=== PATIENT | female | born 1945 | race Caucasian/White ===

== ENCOUNTER 2018-03-06 06:38 | Day surgery (SDC) | payer MEDICARE, BC ==
[~2018-03-06 06:38] MED LIST: CEFAZOLIN 1 GM/D5W RTU 1 GM/50 ML RTUPB IV PRN; DEXTROSE 5%-1/2 NORMAL SALINE 1,000 ML IV PRN; DIAZEPAM 5 MG TABLET PO PRN; OXYCODONE-ACETAMINOPHEN 5-325 MG TABLET PO PRN
--- NOTE | 2018-03-06 07:32 | RADIOLOGY REPORT (SQ) ---
EXAM DESCRIPTION: Single view of the chest CLINICAL HISTORY: PREOP for port placement. COMPARISON: None. FINDINGS: Single frontal view of the chest. Atherosclerotic calcification of the aortic arch. Heart is not enlarged. Blunting of the right costophrenic angle may represent small pleural effusion or pleural scarring. No pneumothorax. No displaced rib fractures identified. Upper abdominal soft tissues are unremarkable. IMPRESSION: 1. Blunting of the right costophrenic angle may represent small right pleural effusion or pleural scarring.
[2018-03-06 07:43] LABS: HEMATOCRIT 32.9 % (36.0-47.0); HEMOGLOBIN 11.3 g/dL (12.0-15.5); MEAN CORPUSCULAR HEMOGLOBIN 34.1 pg (27.0-33.4); MEAN CORPUSCULAR HGB CONC 34.5 g/dL (32.0-36.0); MEAN CORPUSCULAR VOLUME 99 fl (80-97); PLATELET COUNT 263 10^3/uL (150-450); RED BLOOD COUNT 3.33 10^6/uL (3.72-5.28); RED CELL DISTRIBUTION WIDTH 13.1 % (11.5-14.0); WHITE BLOOD COUNT 4.8 10^3/uL (4.0-10.5)
[2018-03-06 07:51] LABS: ANION GAP 10 (5-19); BLOOD UREA NITROGEN 17 mg/dL (7-20); CALCIUM 9.5 mg/dL (8.4-10.2); CARBON DIOXIDE 24 mmol/L (22-30); CHLORIDE 111 mmol/L (98-107); GLUCOSE 93 mg/dL (75-110); POTASSIUM 4.5 mmol/L (3.6-5.0)
[2018-03-06] MEDS ORDERED: BACITRACIN INJ 50,000 UNIT VIAL ONE (08:23)
[2018-03-06] MEDS ORDERED: LIDOCAINE 0.5% INJ-PF (5 MG/ML) 50 ML SDV ONE (08:23)
[2018-03-06] MEDS ORDERED: MIDAZOLAM 2 MG/2 ML INJ ONE (08:29)
[2018-03-06] MEDS ORDERED: FENTANYL CITRATE INJ/PF 100 MCG/2 ML AMPUL ONE (08:29)
--- NOTE | 2018-03-06 09:49 | Discharge Summary ---
Discharge Summary (SDC) - Discharge Final Diagnosis: Lung cancer Date of Surgery: 03/06/18 Discharge Date: 03/06/18 Condition: Good Treatment or Instructions: Discharge home [after recovery per ASU criteria]. Diet ,as tolerated, when fully awake advance as tolerated. Activities within moderation encouraged. Follow up in my office by appointment in about [1 week]. Call for appointment. Leave wounds [covered], [keep clean and dry, until office visit in 1 week]. Hold of on school/work [until evaluation in office]. Meds per med rec. Percocet prescription. May shower [in 48 hrs], [try to keep operated area as dry as possible]. Prescriptions: Oxycodone HCl/Acetaminophen [Percocet 5-325 mg Tablet] 1 tab PO ASDIR PRN #15 tab PRN Reason: Referrals: CALDERON DAVID MD [Primary Care Provider] - Discharge Diet: As Tolerated Respiratory Treatments at Home: Deep Breathing/Coughing Discharge Activity: Activity As Tolerated Report the Following to Your Physician Immediately: Shortness of Breath, Unusual Bleeding
--- NOTE | 2018-03-06 09:52 | Operative Report ---
Operative Report DATE OF SURGERY: 03/06/18 PREOPERATIVE DIAGNOSIS: Lung cancer POSTOPERATIVE DIAGNOSIS: Lung cancer OPERATION: 1. Ultrasound evaluation and real-time access into the left internal jugular vein. 2. Port-A-Cath insertion via real-time access and left internal jugular vein. 3. Angiogram and interpretation. SURGEON: BLANKA DAWSON HVAC OPERATIONS TECHNICIAN: None. ANESTHESIA: Moderate Sedation TISSUE REMOVED OR ALTERED: Not applicable. COMPLICATIONS: None. ESTIMATED BLOOD LOSS: 5 mL. INTRAOPERATIVE FINDINGS: Satisfactory left internal jugular vein, situated almost between the heads of the sternocleidomastoid. Satisfactory access, satisfactory position with the tip down in the right atrium. Easy egress of blood and ingress of heparinized solution. Smooth flow of contrast through the right atrium PROCEDURE: After obtaining informed consent, the patient was taken to the [employer] and positioned supine. The left neck and chest were prepared with chlorhexidine and draped out with sterile linen. After the " universal timeout", in which it was verified that the patient continued to receive antibiotic, the procedure commenced. A steriley sheathed ultrasound probe was used to evaluate the [ right] internal jugular vein. Local anesthesia was infiltrated adjacent to the probe. Access into the left internal jugular vein was obtained using a micropuncture needle, followed by micropuncture wire and then a micropuncture catheter. This was followed by introduction of a 0.035 guidewire the tip of which was placed down into the inferior vena cava . The port sites was marked , locally anesthetized and incision made. Dissection now proceeded to the deep subcutaneous subcutaneous tissues so that a pocket for the port was made. Meticulous hemostasis was secured and the catheter was tunneled between the 2 incisions. Proximally, the catheter was now positioned using a peel-away sheath. Distally the catheter was tailored to an appropriate length and then mated to the port using the contained fixating device. The port was now placed in the pocket and the catheter optimally positioned. The port was accessed with a Hernandes needle and an angiogram done under digital subtraction. The findings as dictated. With adequate and satisfactory positioning, both lumens of the chamber were irrigated with heparinized solution. The wounds were now closed using interrupted 3-0 PDS to the subcutaneous tissues and a continuous subcuticular suture of 4-0 Monocryl to the skin. These are reinforced with Steri-Strips over benzoin and then dressings applied. Time: 0.7 minute. Dose: 5.71 m Gy Contrast: 5 mls. Isovue 300. Copies of the dictated operative report for Dr. Blanka Hartman MD.
--- NOTE | 2018-03-06 13:20 | RADIOLOGY REPORT (SQ) ---
EXAM DESCRIPTION: PORTACATH INSERTION COMPLETED DATE/TIME: 03/06/2018 9:44 am REASON FOR STUDY: C34.91 RT LUNG CA C34.91 MALIGNANT NEOPLASM OF UNSP PART OF RIGHT BRONCHUS OR COMPARISON: None. FLUOROSCOPY TIME: 0.7 minutes. 11 images saved to PACS. TECHNIQUE: Intra-operative images acquired during surgical procedure to evaluate progress. NUMBER OF IMAGES: 11 images. LIMITATIONS: None. FINDINGS: Images of the chest acquired during catheter placement. IMPRESSION: IMAGE(S) OBTAINED DURING PROCEDURE. COMMENT: Quality ID [id number]: Final reports for procedures using fluoroscopy that document radiation exp osure indices, or exposure time and number of fluorographic images (if radiation exposure indices are not available) Please consult full operative report of the attending physician for description of the procedure. TECHNICAL DOCUMENTATION: JOB ID: [id number] [employer]- All Rights Reserved Reading location - IP/workstation name: [email or web address]
[2018-03-06 13:26] VITALS: BP 123/56
== END 2018-03-06 11:00 | disposition home or self-care (01) ==
LOC: CCL 06:38
PROVIDERS: ATTEND Surgery
DX: C34.91 Malignant neoplasm of unspecified part of right bronchus or lung (principal); I10 Essential (primary) hypertension; M19.90 Unspecified osteoarthritis, unspecified site; Z79.899 Other long term (current) drug therapy; Z79.82 Long term (current) use of aspirin; Z87.891 Personal history of nicotine dependence; Z79.1 Long term (current) use of non-steroidal anti-inflammatories (NSAID)
CPT/HCPCS: 36415; 85027; 80048; 36561; 76937; 77001; 71045; C1752; C1788; Q9967; C1769; J2250; J3490 ×2; J0690; A9270 ×2; J3010; J1644

== ENCOUNTER → 2018-05-10 | Outpatient (CLI) | payer MEDICARE, BC ==
--- NOTE | 2018-05-10 17:11 | XCELERA REPORT ---
[address] [address] Upper Extremity Venous Evaluation Name: SENAIT LEONARD Age: 72 yrs Gender: Female : 1945 Patient Status: Preadmit Patient Location: Study Date: 05/10/2018 01:12 PM Procedure: Unilateral duplex scan of the left upper extremity veins was performed, including responses to compression and other maneuvers. Reason For Study: LT SHOULDER PAIN Ordering Physician: MIKE^BLANKA^^^MD Performed By: Geraldine Kim Left Sided Venous Evaluation Normal vessels filling, wall to wall, Normal compression, augmentation of flow and Colour flow imaging. From the Subclavian to the forearm veins. Interpretation Summary Normal compression, patency, spontaneous and phasic flow of the left upper extremity veins. : MIKE^BLANKA^^^MD > Blanka Hartman
== END ==
LOC: SP 13:53
PROVIDERS: ATTEND Surgery
DX: M25.512 Pain in left shoulder (principal)
CPT/HCPCS: 93971

== ENCOUNTER → 2018-06-27 | Outpatient (CLI) | payer MEDICARE, BC ==
--- NOTE | 2018-06-28 08:32 | RADIOLOGY REPORT (SQ) ---
EXAM DESCRIPTION: PET CT SKULL/THIGH COMPLETED DATE/TIME: 06/27/2018 8:41 pm REASON FOR STUDY: C34.11 MALIGNANT NEOPLASM OF UPPER LOBE, RIGHT BRONCHUS OR LUNG C34.11 MALIGNANT NEOPLASM OF UPPER LOBE, RIGHT BRONCHUS OR L COMPARISON: CT chest abdomen pelvis 06/21/2018 RADIONUCLIDE AND DOSE: 11 mCi F18 FDG The route of agent administration: Intravenous FASTING BLOOD SUGAR: 108 mg/dl CONTRAST TYPE AND DOSE: No CT contrast given. TECHNIQUE: Blood glucose level was verified. Above dose of FDG was injected intravenously. 2-D seg mented attenuation correction images were obtained from the base of the skull to the midthighs. Nonc ontrast CT images were obtained for attenuation correction and fusion with emission images. CT image s were performed without oral or intravenous contrast and are not sensitive for parenchymal lesions. A series of overlapping emission PET images were obtained. Images reviewed and manipulated at [facility] work station by the radiologist. Images stored on PACS. LIMITATIONS: None. FINDINGS: HEAD AND NECK: No areas of abnormal metabolic activity in the soft tissues of the head and neck. CHEST: Bulky mediastinal adenopathy is present with enlarged left supraclavicular, right paratracheal , precarinal, and right hilar lymph nodes with SUV of 10 to 12. There are multiple lung parenchymal metastatic nodules up to 2 cm in size, with SUV 8 to 13. No pleural effusion. No pneumothorax. Post remote prior right upper lobectomy. ABDOMEN AND PELVIS: No areas of abnormal metabolic activity in the abdomen or pelvis. Expected physi ologic activity is present in the genitourinary system and bowel. PROXIMAL LOWER EXTREMITIES: No areas of abnormal metabolic activity in the soft tissues of the lower extremities. BONES: No abnormal metabolic activity in the visualized skeleton. ADDITIONAL CT FINDINGS: Post appendectomy and hysterectomy. Mild cardiomegaly. Calcified right vance tid bifurcation OTHER: Liver background activity 2.5 SUV. Blood pool background activity 1.7 SUV IMPRESSION: Malignant mediastinal adenopathy Multiple lung parenchymal metastatic lesions without pleural effusion TECHNICAL DOCUMENTATION: JOB ID: [id number]- All Rights Reserved Reading location - IP/workstation name: [id number]
== END ==
LOC: RAD 19:18
PROVIDERS: ATTEND Internal Medicine
DX: C34.11 Malignant neoplasm of upper lobe, right bronchus or lung (principal)
CPT/HCPCS: 78815; A9552

== ENCOUNTER 2018-08-02 21:46 | Inpatient (IN) | payer MEDICARE, BC ==
[2018-08-02] MEDS ORDERED: ASPIRIN 81 MG TABLET, CHEWABLE PO ONE (21:49)
--- NOTE | 2018-08-02 22:04 | ER Document Report ---
ED Cardiac - General Stated Complaint: HEART ISSUE Time Seen by Provider: 08/02/18 21:50 Notes: Patient is a 72-year-old female that comes to the emergency department for chief complaint of an episode just prior to arrival where she was sitting in her bed and she suddenly felt a "weird" sensation, mild shortness of breath, palpitations, she broke out into a sweat, and she felt tingling and numbness in her left arm. She states this lasted for several minutes and then resolved. On arrival EMS found that she had a heart rate in the 120s with PVCs but no other abnormalities. Patient denies any current symptoms. She denies fever, nausea or vomiting. Past medical history of stage IV lung cancer, on chemotherapy. Denies cardiac history including arrhythmia, MD. She does state that she periodically has syncopal episodes. Patient reports only medication changes she was just placed on Cipro within the past 2 days for a urinary tract infection. TRAVEL OUTSIDE OF THE [place] IN LAST 30 DAYS: No - Related Data Allergies/Adverse Reactions: No Known Allergies Allergy (Unverified 03/03/18 14:21) Past Medical History - General Information source: Patient - Social History Smoking Status: Never Smoker Frequency of alcohol use: None Drug Abuse: None Lives with: Family Family History: Reviewed & Not Pertinent - Past Medical History Cardiac Medical History: Reports: Hx Hypertension Denies: Hx Coronary Artery Disease, Hx Heart Attack Pulmonary Medical History: Reports: Hx COPD Denies: Hx Asthma, Hx Bronchitis, Hx Pneumonia Neurological Medical History: Denies: Hx Cerebrovascular Accident, Hx Seizures Musculoskeletal Medical History: Reports Hx Arthritis - Immunizations Immunizations up to date: Yes Hx Diphtheria, Pertussis, Tetanus Vaccination: Yes Review of Systems - Review of Systems Constitutional: No symptoms reported EENT: No symptoms reported Cardiovascular: See HPI Respiratory: See HPI Gastrointestinal: No symptoms reported Genitourinary: No symptoms reported Female Genitourinary: No symptoms reported Musculoskeletal: No symptoms reported Skin: No symptoms reported Hematologic/Lymphatic: No symptoms reported Neurological/Psychological: No symptoms reported Physical Exam - Vital signs Vitals: Pulse Ox 98 08/02/18 21:51 - Notes Notes: GENERAL: Alert, interacts well. No acute distress. HEAD: Normocephalic, atraumatic. EYES: Pupils equal, round, and reactive to light. Extraocular movements intact. ENT: Oral mucosa moist, tongue midline. Oropharynx unremarkable. Airway patent. Nares patent, no nasal septal hematoma, TM's intact. NECK: Full range of motion. Supple. Trachea midline. LUNGS: Clear to auscultation bilaterally, no wheezes, rales, or rhonchi. No respiratory distress. HEART: Regular rate and rhythm. No murmur ABDOMEN: Soft, non-tender. Non-distended. Bowel sounds present in all 4 quadrants. GENITOURINARY: Deferred EXTREMITIES: Moves all 4 extremities spontaneously. No edema, normal radial and dorsalis pedis pulses bilaterally. No cyanosis. BACK: no cervical, thoracic, lumbar midline tenderness. No saddle anesthesia, normal distal neurovascular exam. NEUROLOGICAL: Alert and oriented x3. Normal speech. [cranial nerves II through XII grossly intact]. PSYCH: Normal affect, normal mood. SKIN: Warm, dry, normal turgor. No rashes or lesions noted. Course - Re-evaluation Re-evalutation: Patient alert, well-appearing, no current symptoms on my evaluation. Sinus rhythm on the monitor, no tachycardia, hypotension, fever. EKG shows sinus rhythm at a rate of 68 with a MS interval of 160 and QTC of 443. CBC and, troponin is not elevated. Magnesium normal, thyroid studies normal, BNP mildly elevated at 1200. No rales, no lower extremity edema. Chest x-ray showing new opacities on the left side, could be edema. On reevaluation patient asymptomatic. Low suspicion of PE. No tachycardia, no hypoxia, unremarkable vital signs. I discussed with patient and family in detail. I am concerned because of patient's description of her event, could be MD or arrhythmia related (strange feeling with shortness of breath, diaphoresis, left arm numbness). Will discuss with her provider for potential admission to the hospital. Discussed with Dr. Pereyra, patient will be admitted to [facility] observation, and he recommends CT of the chest be performed. I discussed this with family. Discussed with Dr. Rosenthal, patient's Oncologist, he states agreement with plan. 08/03/18 02:00 Patient is admitted to the [facility] and going upstairs. Her CT has resulted and shows multiple new areas that appear to be metastasis. Borderline effusion. No acute abnormality. Patient requests that she not be informed of any imaging decisions until her daughter returns tomorrow unless absolutely necessary. Withheld information at this time on patient's request. - Vital Signs Vital signs: Temp Pulse Resp BP Pulse Ox 97.9 F 58 L 15 154/68 H 96 08/03/18 02:36 08/03/18 02:36 08/03/18 02:36 08/03/18 02:36 08/03/18 02:36 - Laboratory Result Diagrams: 08/02/18 21:57 08/02/18 21:57 Laboratory results interpreted by me: 08/02/18 08/02/18 08/02/18 21:57 21:57 22:45 RBC 3.44 L Hgb 11.5 L Hct 32.9 L RDW 15.0 H Seg Neutrophils % 81.4 H Lymphocytes % 12.4 L Est GFR (Non-Af Amer) 54 L NT-Pro-B Natriuret Pep 1230 H Discharge - Discharge Clinical Impression: Left arm numbness, Shortness of breath, Heart palpitations Lung cancer Qualifiers: Laterality: unspecified laterality Lung location: unspecified part of lung Qualified Code(s): C34.90 - Malignant neoplasm of unspecified part of unspecified bronchus or lung Condition: Stable Disposition: ADMITTED OBSERVATION Admitting Provider: Pereyra Unit Admitted: [facility]
[2018-08-02 22:10] LABS: ABSOLUTE LYMPHOCYTES (AUTO) 0.6 10^3/uL (0.5-4.7); ABSOLUTE MONOCYTES (AUTO) 0.2 10^3/uL (0.1-1.4); BASOPHILS % (AUTO) 0.9 % (0-2); EOSINOPHILS % (AUTO) 0.5 % (0-6); HEMATOCRIT 32.9 % (36.0-47.0); HEMOGLOBIN 11.5 g/dL (12.0-15.5); LYMPHOCYTES % (AUTO) 12.4 % (13-45); MEAN CORPUSCULAR HEMOGLOBIN 33.4 pg (27.0-33.4); MEAN CORPUSCULAR HGB CONC 34.8 g/dL (32.0-36.0); MEAN CORPUSCULAR VOLUME 96 fl (80-97); MONOCYTES % (AUTO) 4.8 % (3-13); PLATELET COUNT 424 10^3/uL (150-450); RED BLOOD COUNT 3.44 10^6/uL (3.72-5.28); SEGMENTED NEUTROPHILS % (AUTO) 81.4 % (42-78); TOTAL CELLS COUNTED % (AUTO) 100 %
[2018-08-02 22:21] LABS: INTERNATIONAL RATION (INR) 0.93
[2018-08-02 22:24] LABS: ALANINE AMINOTRANSFERASE 13 U/L (9-52); ALBUMIN 3.8 g/dL (3.5-5.0); ALKALINE PHOSPHATASE 107 U/L (38-126); ANION GAP 11 (5-19); ASPARTATE AMINO TRANSFERASE 29 U/L (14-36); BILIRUBIN,DIRECT 0.2 mg/dL (0.0-0.4); BILIRUBIN,TOTAL 0.5 mg/dL (0.2-1.3); BLOOD UREA NITROGEN 13 mg/dL (7-20); CALCIUM 9.1 mg/dL (8.4-10.2); CARBON DIOXIDE 24 mmol/L (22-30); CHLORIDE 105 mmol/L (98-107); CREATINE KINASE 31 U/L (30-135); GLUCOSE 103 mg/dL (75-110); POTASSIUM 4.3 mmol/L (3.6-5.0); SODIUM 140.3 mmol/L (137-145); TOTAL PROTEIN 7.1 g/dL (6.3-8.2)
[2018-08-02 22:36] LABS: CREATINE KINASE MB 0.53 ng/mL (<4.55)
[2018-08-02 22:39] LABS: TROPONIN I < 0.012 ng/mL
--- NOTE | 2018-08-02 23:21 | RADIOLOGY REPORT (SQ) ---
EXAM DESCRIPTION: XR CHEST 1 VIEW COMPLETED DATE/TME: 08/02/2018 21:49 CLINICAL HISTORY: 72 years, Female, palpatations COMPARISON: March 06, 2018 FINDINGS: Cardiac silhouette is within normal limits. There is an infusion catheter with the tip ending at the level of the superior vena cava. EKG leads project over the chest.. Reticular opacities within the left lung could be secondary to underlying mild pulmonary edema. Straightening of the upper pulmonary vessels suggests underlying emphysematous changes. Linear opacities of the right lower lung may represent scar. There is elevation of the right hemidiaphragm, unchanged compared with the prior exam There is no acute osseous process visualized. IMPRESSION: New reticular opacities at the left lung could be secondary to asymmetric pulmonary edema. Recommend follow-up.
[2018-08-02 23:32] LABS: FREE T4 (FREE THYROXINE) 1.16 ng/dL (0.78-2.19)
[2018-08-02 23:46] LABS: THYROID STIMULATING HORMONE 1.31 uIU/mL (0.47-4.68)
[2018-08-03] MEDS ORDERED: ACETAMINOPHEN 325 MG TABLET PO PRN (00:17)
--- NOTE | 2018-08-03 01:53 | RADIOLOGY REPORT (SQ) ---
PROCEDURE: CT OF THE CHEST WITH INTRAVENOUS CONTRAST HISTORY: shortness of breath, abn CXR Indication: Same as above Comparison: Chest x-ray done on 08/02/2018 Technique: The study was done on 08/03/2018 at 1:[address] of the chest was done with intravenous contrast followed by CT angiography of the pulmonary arteries. Coronal, Sagittal and 3D volumetric MIP reconstructions were generated from the acquired data. The patient was injected with radiographic contrast intravenously, without any documented immediate adverse reactions. This exam was performed according to our departmental dose-optimization program, which includes automated exposure control, adjustment of the mA and/or KV according to the patient's size and/or use of iterative reconstruction technique. FINDINGS: There is no visualization of filling defects in the main pulmonary trunk, main right and left pulmonary arteries or their lower order branches to suggest pulmonary embolism. The bilateral main pulmonary arteries are normal in caliber. There is no evidence of interventricular septal deviation or filling defects in the cardiac chambers. There are underlying changes of COPD. Scattered multiple ill-defined nodular masses are seen in the bilateral lung triana, too many to count and highly suspicious for metastatic disease to the lung. There is tiny right-sided pleural effusion. Pathologically enlarged lymph node is seen along the anterior right epicardial fat measuring 11 mm in short axis dimension. There is also presence of pathologically enlarged lymph node in the right hilum measuring 16 mm in short axis dimension. The trachea, bilateral mainstem bronchi and the bilateral main segmental bronchi are patent without any intraluminal mass lesions. There is no gross evidence of clinically significant thoracic aortic aneurysm or thoracic aortic dissection. There is no clinically significant pericardial effusion. The thoracic bony rib cage appears grossly unremarkable. The visualized thoracic spine shows generalized osteopenia. Limited evaluation of the evaluated upper abdomen does not show any gross abnormalities. IMPRESSION: There is no pulmonary embolism Scattered multiple ill-defined nodular masses are seen in the bilateral lung triana, too many to count and highly suspicious for metastatic disease to the lung. There is tiny right-sided pleural effusion. Pathologically enlarged lymph node is seen along the anterior right epicardial fat measuring 11 mm in short axis dimension. There is also presence of pathologically enlarged lymph node in the right hilum measuring 16 mm in short axis dimension.
[2018-08-03 04:50] LABS: CREATINE KINASE MB 0.45 ng/mL (<4.55); TROPONIN I 0.025 ng/mL
[2018-08-03] MEDS: LANSOPRAZOLE 15 MG TAB.RAP.DR PO SCH ×2 (06:10→17:59)
[2018-08-03] MEDS ORDERED: LORAZEPAM 0.5 MG TABLET PO PRN ×2 (08:11→16:06)
[2018-08-03] MEDS ORDERED: (PENDING PHARMACY ID) (Ondansetron [Ondansetron Odt] 8 MG) PO PRN (08:11)
--- NOTE | 2018-08-03 08:55 | PDOC H&P ---
History of Present Illness Admission Date/PCP: 08/03/18 00:39 GENE SMITH MD Patient complains of: Funny feeling the left side History of Present Illness: SENAIT LEONARD is a 72 year old female This is a 72-year-old female diagnosed with a stage IV lung cancer history of the COPD hypertension's anxiety came to the emergency department with the feeling funny on the left side of the chest which patients feel like a heart is coming out from the chest with palpitations and not feeling wellFurther episode like 2 or 3 times in patients came to the ER where patient initial workup including the CT angiogram was negative for PE except ongoing cancer Patient initial workup for the cardiac is also negative Patient also receiving the chemotherapy on a Tuesday Patient also have a recent diagnosed with a urinary tract infection and placed on the Cipro and according to the patient's take her to dose of the Cipro feel like the symptoms but no other reactions Patients was taking the beta-mando in the past but currently running the low blood pressures currently hold the medications Since denied any heart conditions Patient's currently denied any chest pain denied any shortness of the breath Past Medical History Cardiac Medical History: Reports: Hypertension Denies: Coronary Artery Disease, Myocardial Infarction Pulmonary Medical History: Reports: Chronic Obstructive Pulmonary Disease (COPD) Denies: Asthma, Bronchitis, Pneumonia Neurological Medical History: Denies: Seizures Musculoskeltal Medical History: Reports: Arthritis Psychiatric Medical History: Reports: General Anxiety Disorder Denies: Depression Hematology: Denies: Anemia Social History Lives with: Family Smoking Status: Never Smoker Cigarettes Packs Per Day: 0.5 Number of Years Smokin Last Time Smoked: 05/30/2017 Frequency of Alcohol Use: None Hx Recreational Drug Use: No Hx Prescription Drug Abuse: No Family History Family History: Reviewed & Not Pertinent Parental Family History Reviewed: Yes Children Family History Reviewed: Yes Sibling(s) Family History Reviewed.: Yes Medication/Allergy Home Medications: Ciprofloxacin HCl [Cipro 500 mg Tablet] 500 mg PO BID 08/03/18 Citalopram Hydrobromide [Citalopram HBr] 20 mg PO DAILY 08/03/18 Cyclobenzaprine HCl 10 mg PO Q8 PRN 08/03/18 Folic Acid 1 mg PO DAILY 08/03/18 Loratadine [Claritin] 10 mg PO DAILY 08/03/18 Lorazepam [Ativan 0.5 mg Tablet] 0.5 mg PO Q6 PRN 08/03/18 Ondansetron [Ondansetron Odt] 8 mg PO Q6 PRN 08/03/18 Prednisone [Deltasone 10 mg Tablet] 10 mg PO DAILY 08/03/18 Temazepam [Restoril] 30 mg PO HSP PRN 08/03/18 Tiotropium Br/Olodaterol HCl [Stiolto Respimat Inhal [place]] 4 gm IH PRN PRN 10/20 Allergies/Adverse Reactions: No Known Allergies Allergy (Unverified 03/03/18 14:21) Review of Systems Constitutional: ABSENT: chills, fever(s), headache(s), weight gain, weight loss Eyes: ABSENT: visual disturbances Ears: ABSENT: hearing changes Cardiovascular: ABSENT: chest pain, dyspnea on exertion, edema, orthropnea, palpitations Respiratory: ABSENT: cough, hemoptysis Gastrointestinal: ABSENT: abdominal pain, constipation, diarrhea, hematemesis, hematochezia, nausea, vomiting Genitourinary: ABSENT: dysuria, hematuria Musculoskeletal: ABSENT: joint swelling Integumentary: ABSENT: rash, wounds Neurological: ABSENT: abnormal gait, abnormal speech, confusion, dizziness, focal weakness, syncope Psychiatric: ABSENT: anxiety, depression, homidical ideation, suicidal ideation Endocrine: ABSENT: cold intolerance, heat intolerance, menstrual abnormalities, polydipsia, polyuria Hematologic/Lymphatic: ABSENT: easy bleeding, easy bruising, lymphadenopathy Physical Exam Vital Signs: Temp Pulse Resp BP Pulse Ox 98.8 F 69 17 133/61 H 93 08/03/18 07:16 08/03/18 07:16 08/03/18 07:16 08/03/18 07:16 08/03/18 07:16 Intake & Output 08/02/18 08/03/18 08/04/18 06:59 06:59 06:59 Intake Total 450 Output Total 0 Balance 450 Weight 63.2 kg General appearance: PRESENT: no acute distress, well-developed, well-nourished Head exam: PRESENT: atraumatic, normocephalic Eye exam: PRESENT: conjunctiva pink, EOMI, PERRLA. ABSENT: scleral icterus Ear exam: PRESENT: normal external ear exam Mouth exam: PRESENT: moist, tongue midline Neck exam: PRESENT: full ROM. ABSENT: carotid bruit, JVD, lymphadenopathy, thyromegaly Respiratory exam: PRESENT: clear to auscultation santi Cardiovascular exam: PRESENT: RRR. ABSENT: diastolic murmur, rubs, systolic murmur Pulses: PRESENT: normal dorsalis pedis pul, +2 pedal pulses bilateral Vascular exam: PRESENT: normal capillary refill GI/Abdominal exam: PRESENT: normal bowel sounds, soft. ABSENT: distended, guarding, mass, organolmegaly, rebound, tenderness Rectal exam: PRESENT: deferred Extremities exam: ABSENT: pedal edema Neurological exam: PRESENT: alert, awake, oriented to person, oriented to place , oriented to time, oriented to situation, CN II-XII grossly intact. ABSENT: motor sensory deficit Psychiatric exam: PRESENT: appropriate affect, normal mood. ABSENT: homicidal ideation, suicidal ideation Skin exam: PRESENT: dry, intact, warm. ABSENT: cyanosis, rash Results Laboratory Results: 08/03/18 08/03/18 03:59 03:59 Creatine Kinase 23 L CK-MB (CK-2) 0.45 Troponin I 0.025 Impressions: Chest X-Ray 08/02/18 21:49 IMPRESSION: New reticular opacities at the left lung could be secondary to asymmetric pulmonary edema. Recommend follow-up. Chest/Abdomen CTA 08/03/18 00:11 IMPRESSION: There is no pulmonary embolism Scattered multiple ill-defined nodular masses are seen in the bilateral lung triana, too many to count and highly suspicious for metastatic disease to the lung. There is tiny right-sided pleural effusion. Pathologically enlarged lymph node is seen along the anterior right epicardial fat measuring 11 mm in short axis dimension. There is also presence of pathologically enlarged lymph node in the right hilum measuring 16 mm in short axis dimension. Assessment & Plan - Diagnosis (1) Heart palpitations Is this a current diagnosis for this admission?: Yes Plan: Not clear etiology patient CT angiogram is negative due to the underlying dehydration's but patient's claim that she is drinking enough water The BNP is slightly elevated will get the echocardiogram We will consult the cardiology (2) Chronic obstructive pulmonary disease Qualifiers: COPD type: unspecified COPD Qualified Code(s): J44.9 - Chronic obstructive pulmonary disease, unspecified Is this a current diagnosis for this admission?: Yes Plan: Continues with as needed Xopenex nebulizer treatments instead of the DuoNeb (3) Hypertension Qualifiers: Hypertension type: essential hypertension Qualified Code(s): I10 - Essential (primary) hypertension Is this a current diagnosis for this admission?: Yes Plan: Patient may be get a benefit from the low-dose of beta-mando due to the palpitation issue (4) Anxiety disorder Qualifiers: Anxiety disorder type: generalized anxiety disorder Qualified Code(s): F41.1 - Generalized anxiety disorder Is this a current diagnosis for this admission?: Yes Plan: Continues to current medication (5) Lung cancer Qualifiers: Laterality: unspecified laterality Lung location: unspecified part of lung Qualified Code(s): C34.90 - Malignant neoplasm of unspecified part of unspecified bronchus or lung Is this a current diagnosis for this admission?: Yes Plan: Follow with oncology (6) Urinary tract infection Qualifiers: Urinary tract infection type: site unspecified Is this a current diagnosis for this admission?: Yes Plan: Discontinue Cipro send the urine for culture start on IV Rocephin - Time Time Spent: 30 to 50 Minutes Medications reviewed and adjusted accordingly: Yes Anticipated discharge: Home Within: Other - Inpatient Certification Based on my medical assessment, after consideration of the patient's comorbidities, presenting symptoms, or acuity I expect that the services needed warrant INPATIENT care.: Yes I certify that my determination is in accordance with my understanding of Medicare's requirements for reasonable and necessary INPATIENT services [42 CFR 412.3e].: Yes Medical Necessity: Significant Comorbidiites Make Outpatient Treatment Too Risky , Need Close Monitoring Due to Risk of Patient Decompensation, Need For IV Fluids, Need for IV Antibiotics 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
--- NOTE | 2018-08-03 09:14 | PDOC CONSULTATION ---
Consultation Consult Date: 08/03/18 Attending physician:: GENE SMITH Consult reason:: Stage IV lung cancer here with tachycardia, palpitations History of Present Illness Admission Date/PCP: 08/03/18 00:39 GENE SMITH MD Patient complains of: Tachycardia, Pulsations History of Present Illness: SENAIT LEONARD is a 72 year old female well-known to the oncology clinic with stage IV lung cancer, with recent progression noted in June off of immunotherapy, started on third line therapy with [place]/Abraxane. First cycle was complicated by severe nausea and vomiting as well as weakness. Second cycle was just started this week and she actually did fairly well until yesterday, she began having extreme tachycardia flushing, felt like she might have been having a reaction to the Cipro that we started for noted UTI. She called EMS and they brought her to [facility], I called the ED, they called me overnight and her PCP Dr. Smith who wanted to monitor her for 24-48 hours. She is getting echocardiogram currently. She had CTA of the chest to ensure that there is no thrombotic event, PE was not noted, I reviewed the images and I had radiology review the images today. Overall there is stability of the lung lesions. Per my view as well as radiology view from today. Past Medical History Cardiac Medical History: Reports: Hypertension Denies: Coronary Artery Disease, Myocardial Infarction Pulmonary Medical History: Reports: Chronic Obstructive Pulmonary Disease (COPD) Denies: Asthma, Bronchitis, Pneumonia Neurological Medical History: Denies: Seizures Malignancy Medical History: Reports: Lung Cancer - Stage IV lung cancer with bilateral lung nodules as well as mediastinal lym Musculoskeltal Medical History: Reports: Arthritis Psychiatric Medical History: Reports: General Anxiety Disorder Denies: Depression Hematology: Denies: Anemia Past Surgical History Past Surgical History: Reports: Other - Port placement, lobectomy Social History Information Source: Patient Lives with: Family Smoking Status: Former Smoker Cigarettes Packs Per Day: 0.5 Number of Years Smokin Last Time Smoked: 05/30/2017 Frequency of Alcohol Use: None Hx Recreational Drug Use: No Hx Prescription Drug Abuse: No - Advance Directive Resuscitation Status: Full Code Family History Family History: Reviewed & Not Pertinent Parental Family History Reviewed: Yes Children Family History Reviewed: Yes Sibling(s) Family History Reviewed.: Yes Medication/Allergy Home Medications: Ciprofloxacin HCl [Cipro 500 mg Tablet] 500 mg PO BID 08/03/18 Citalopram Hydrobromide [Citalopram HBr] 20 mg PO DAILY 08/03/18 Cyclobenzaprine HCl 10 mg PO Q8 PRN 08/03/18 Folic Acid 1 mg PO DAILY 08/03/18 Loratadine [Claritin] 10 mg PO DAILY 08/03/18 Lorazepam [Ativan 0.5 mg Tablet] 0.5 mg PO Q6 PRN 08/03/18 Ondansetron [Ondansetron Odt] 8 mg PO Q6 PRN 08/03/18 Prednisone [Deltasone 10 mg Tablet] 10 mg PO DAILY 08/03/18 Temazepam [Restoril] 30 mg PO HSP PRN 08/03/18 Tiotropium Br/Olodaterol HCl [Stiolto Respimat Inhal [place]] 4 gm IH PRN PRN 10/20 Allergies/Adverse Reactions: No Known Allergies Allergy (Unverified 03/03/18 14:21) Review of Systems Constitutional: ABSENT: chills, fever(s), headache(s), weight gain, weight loss Eyes: ABSENT: visual disturbances Ears: ABSENT: hearing changes Cardiovascular: ABSENT: chest pain, dyspnea on exertion, edema, orthropnea, palpitations Respiratory: ABSENT: cough, hemoptysis Gastrointestinal: ABSENT: abdominal pain, constipation, diarrhea, hematemesis, hematochezia, nausea, vomiting Genitourinary: ABSENT: dysuria, hematuria Musculoskeletal: ABSENT: joint swelling Integumentary: ABSENT: rash, wounds Neurological: ABSENT: abnormal gait, abnormal speech, confusion, dizziness, focal weakness, syncope Psychiatric: ABSENT: anxiety, depression, homidical ideation, suicidal ideation Endocrine: ABSENT: cold intolerance, heat intolerance, polydipsia, polyuria Hematologic/Lymphatic: ABSENT: easy bleeding, easy bruising Physical Exam Vital Signs: Temp Pulse Resp BP Pulse Ox 98.8 F 69 17 133/61 H 93 08/03/18 07:16 08/03/18 07:16 08/03/18 07:16 08/03/18 07:16 08/03/18 07:16 Intake & Output 08/02/18 08/03/18 08/04/18 06:59 06:59 06:59 Intake Total 450 Output Total 0 Balance 450 Weight 63.2 kg General appearance: PRESENT: no acute distress, well-developed, well-nourished Head exam: PRESENT: atraumatic, normocephalic Eye exam: PRESENT: conjunctiva pink, EOMI, PERRLA. ABSENT: scleral icterus Ear exam: PRESENT: normal external ear exam Mouth exam: PRESENT: moist, tongue midline Neck exam: ABSENT: carotid bruit, JVD, lymphadenopathy, thyromegaly Respiratory exam: PRESENT: clear to auscultation santi. ABSENT: rales, rhonchi, wheezes Cardiovascular exam: PRESENT: RRR. ABSENT: diastolic murmur, rubs, systolic murmur Pulses: PRESENT: normal dorsalis pedis pul Vascular exam: PRESENT: normal capillary refill GI/Abdominal exam: PRESENT: normal bowel sounds, soft. ABSENT: distended, guarding, mass, organolmegaly, rebound, tenderness Rectal exam: PRESENT: deferred Extremities exam: PRESENT: full ROM. ABSENT: calf tenderness, clubbing, pedal edema Neurological exam: PRESENT: alert, awake, oriented to person, oriented to place , oriented to time, oriented to situation, CN II-XII grossly intact. ABSENT: motor sensory deficit Psychiatric exam: PRESENT: appropriate affect, normal mood. ABSENT: homicidal ideation, suicidal ideation Skin exam: PRESENT: dry, intact, warm. ABSENT: cyanosis, rash Results Laboratory Results: 08/03/18 08/03/18 03:59 03:59 Creatine Kinase 23 L CK-MB (CK-2) 0.45 Troponin I 0.025 Impressions: Chest X-Ray 08/02/18 21:49 IMPRESSION: New reticular opacities at the left lung could be secondary to asymmetric pulmonary edema. Recommend follow-up. Chest/Abdomen CTA 08/03/18 00:11 IMPRESSION: There is no pulmonary embolism Scattered multiple ill-defined nodular masses are seen in the bilateral lung triana, too many to count and highly suspicious for metastatic disease to the lung. There is tiny right-sided pleural effusion. Pathologically enlarged lymph node is seen along the anterior right epicardial fat measuring 11 mm in short axis dimension. There is also presence of pathologically enlarged lymph node in the right hilum measuring 16 mm in short axis dimension. Status: Image reviewed by me Assessment & Plan - Diagnosis (1) Lung cancer Qualifiers: Laterality: right Lung location: lower lobe of lung Qualified Code(s): C34.31 - Malignant neoplasm of lower lobe, right bronchus or lung Is this a current diagnosis for this admission?: Yes Plan: Stage IV lung cancer, I reviewed images myself, overall stability of disease. Today had long discussion with the patient as well as daughter, spent greater than 70 minutes in discussion and coordination of care, discussed with radiology as well. We will continue on with current treatment plan over the next 6-8 weeks and then reimage thereafter. We were planning on reimaging on the of this month but now that we have the CT scan indicating overall stability of disease I do not think we need to reimage right then. - Time Time Spent: Greater than 70 Minutes - Inpatient Certification Based on my medical assessment, after consideration of the patient's comorbidities, presenting symptoms, or acuity I expect that the services needed warrant INPATIENT care.: Yes I certify that my determination is in accordance with my understanding of Medicare's requirements for reasonable and necessary INPATIENT services [42 CFR 412.3e].: Yes Medical Necessity: Need For Continuous Telemetry Monitoring, Risk of Complication if Not Cared For in Hospital
[2018-08-03] MEDS ORDERED: CEFTRIAXONE 1 GM/D5W RTU 1 GM/50 ML RTUPB IV SCH (10:00)
[2018-08-03] MEDS: CEFTRIAXONE SODIUM 1,000 MG in DEXTROSE 5%-WATER 50 ML IV SCH (10:33)
[2018-08-03] MEDS: PREDNISONE 10 MG TABLET PO SCH (10:34)
[2018-08-03] MEDS: DOCUSATE SODIUM 100 MG CAPSULE PO SCH (10:34)
[2018-08-03] MEDS: FOLIC ACID 1 MG TABLET PO SCH (10:34)
[2018-08-03] MEDS: CITALOPRAM HYDROBROMIDE 20 MG TABLET PO SCH (10:34)
[2018-08-03] MEDS: ENOXAPARIN SODIUM INJ 40 MG/0.4 ML DISP.SYRIN SUBCUT SCH (10:35)
[2018-08-03] MEDS: ONDANSETRON HCL 8 MG TABLET PO PRN (10:52)
[2018-08-03 11:41] LABS: CREATINE KINASE MB 0.41 ng/mL (<4.55); TROPONIN I 0.017 ng/mL
--- NOTE | 2018-08-03 12:30 | EKG REPORT ---
SEVERITY:- BORDERLINE ECG - SINUS RHYTHM PROBABLE LEFT ATRIAL ABNORMALITY : Confirmed by: Marva Flores MD 03-Aug-2018 12:28:16
--- NOTE | 2018-08-03 12:51 | XCELERA REPORT ---
[address] [address] Transthoracic Echocardiogram Report Name: SENAIT LEONARD Age: 72 yrs Gender: Female : 1945 Patient Status: Inpatient Patient Location: [address] [place] [address] Study Date: 08/03/2018 08:34 AM Procedure: A two-dimensional transthoracic echocardiogram with color flow Doppler was performed. Study Quality: Fair. Reason For Study: cardia arrythemia History: cardia arrythemia. Ordering Physician: GENE SMITH Performed By: Geraldine Kim Interpretation Summary The left ventricle is normal in size. There is normal left ventricular wall thickness. LV EF is > THAN 60% Left ventricular systolic function is normal. Doppler measurements suggest impaired left ventricular relaxation, which is associated with grade I/IV or mild diastolic dysfunction The left ventricular wall motion is normal. There is no thrombus. The right ventricle is normal in size and function. The right atrium is normal. The left atrial size is normal. The interatrial septum is intact with no evidence for an atrial septal defect. There is no mitral valve stenosis. There is no vegetation seen on the mitral valve. There is no mitral regurgitation noted. Mitral valve prolapse cannot be excluded. ( There is probably subtle anterior mitral valve leaflet prolapse.) There is no aortic valvular vegetation. There is no aortic valve stenosis No aortic regurgitation is present. There is no tricuspid stenosis. There is a trace amount of tricuspid regurgitation There is mild pulmonary hypertension by echo RVSP is 36 to 41 mm of Hg , with RA mean of 5 to 10. There is no pulmonic valvular stenosis. There is no pulmonic valvular regurgitation. The aortic root is normal size. The inferior vena cava appeared normal and decreased > 50% with respiration (RAP 5-10 mmHg) There is no pericardial effusion. MMode/2D Measurements & Calculations RVDd: 2.6 cm LVIDd: 5.4 cm FS: 40.7 % Ao root diam: 2.6 cm IVSd: 0.86 cm LVIDs: 3.2 cm EDV(Teich): 140.3 ml Ao root area: 5.4 cm2 LVPWd: 0.89 cm ESV(Teich): 40.8 ml EF(Teich): 70.9 % Doppler Measurements & Calculations MV E max albina: MV dec slope: Ao V2 max: LV V1 max P.5 cm/sec 122.1 cm/sec 3.3 mmHg MV A max albina: 359.6 cm/sec2 Ao max PG: LV V1 max: 80.1 cm/sec MV dec time: 0.17 sec 6.0 mmHg 91.3 cm/sec MV E/A: 0.78 PA V2 max: TR max albina: 100.5 cm/sec 277.5 cm/sec PA max P.0 mmHg TR max P.8 mmHg Left Ventricle The left ventricle is normal in size. There is normal left ventricular wall thickness. LV EF is > THAN 60%. Left ventricular systolic function is normal. Doppler measurements suggest impaired left ventricular relaxation, which is associated with grade I/IV or mild diastolic dysfunction. The left ventricular wall motion is normal. There is no thrombus. There is no ventricular septal defect visualized. Right Ventricle The right ventricle is normal in size and function. Atria The right atrium is normal. The left atrial size is normal. The interatrial septum is intact with no evidence for an atrial septal defect. Mitral Valve There is no vegetation seen on the mitral valve. Mitral valve prolapse cannot be excluded. ( There is probably subtle anterior mitral valve leaflet prolapse.). There is no mitral valve stenosis. There is no mitral regurgitation noted. Aortic Valve There is no aortic valvular vegetation. There is no aortic valve stenosis. No aortic regurgitation is present. Tricuspid Valve There is no tricuspid stenosis. There is a trace amount of tricuspid regurgitation. There is mild pulmonary hypertension by echo. RVSP is 36 to 41 mm of Hg , with RA mean of 5 to 10. Pulmonic Valve There is no pulmonic valvular stenosis. There is no pulmonic valvular regurgitation. Great Vessels The aortic root is normal size. The inferior vena cava appeared normal and decreased > 50% with respiration (RAP 5-10 mmHg). Effusions There is no pericardial effusion. : GENE SMITH > Marva Flores
[2018-08-03] MEDS ORDERED: CYCLOBENZAPRINE HCL 10 MG TABLET PO PRN (16:06)
[2018-08-03 16:48] LABS: CREATINE KINASE MB 0.28 ng/mL (<4.55); TROPONIN I 0.013 ng/mL
[2018-08-03] MEDS ORDERED: NORMAL SALINE 1000 ML 1,000 ML IV PRN (17:20)
[2018-08-03] MEDS: TEMAZEPAM 15 MG CAPSULE PO SCH (21:28)
[2018-08-03] MEDS ORDERED: (PENDING PHARMACY ID) (Temazepam [Restoril] 30 MG) PO SCH (22:00)
[2018-08-04] MEDS: LANSOPRAZOLE 15 MG TAB.RAP.DR PO SCH ×2 (06:07→16:06)
[2018-08-04 06:37] LABS: ABSOLUTE EOSINOPHILS # (AUTO) 0.1 10^3/uL (0.0-0.6); ABSOLUTE LYMPHOCYTES (AUTO) 0.7 10^3/uL (0.5-4.7); ABSOLUTE MONOCYTES (AUTO) 0.2 10^3/uL (0.1-1.4); ABSOLUTE NEUT (AUTO) 3.4 10^3/uL (1.7-8.2); BASOPHILS % (AUTO) 0.2 % (0-2); EOSINOPHILS % (AUTO) 3.1 % (0-6); HEMATOCRIT 28.3 % (36.0-47.0); HEMOGLOBIN 9.8 g/dL (12.0-15.5); LYMPHOCYTES % (AUTO) 15.8 % (13-45); MEAN CORPUSCULAR HEMOGLOBIN 33.5 pg (27.0-33.4); MEAN CORPUSCULAR HGB CONC 34.8 g/dL (32.0-36.0); MEAN CORPUSCULAR VOLUME 96 fl (80-97); MONOCYTES % (AUTO) 4.3 % (3-13); PLATELET COUNT 379 10^3/uL (150-450); RED BLOOD COUNT 2.93 10^6/uL (3.72-5.28); RED CELL DISTRIBUTION WIDTH 15.1 % (11.5-14.0); SEGMENTED NEUTROPHILS % (AUTO) 76.6 % (42-78); TOTAL CELLS COUNTED % (AUTO) 100 %; WHITE BLOOD COUNT 4.4 10^3/uL (4.0-10.5)
[2018-08-04 06:56] LABS: ANION GAP 8 (5-19); BLOOD UREA NITROGEN 14 mg/dL (7-20); CALCIUM 8.5 mg/dL (8.4-10.2); CARBON DIOXIDE 26 mmol/L (22-30); CHLORIDE 107 mmol/L (98-107); GLUCOSE 79 mg/dL (75-110); POTASSIUM 4.3 mmol/L (3.6-5.0); SODIUM 140.6 mmol/L (137-145)
--- NOTE | 2018-08-04 08:46 | PDOC PROGRESS REPORT ---
Subjective Progress Note for:: 08/04/18 Subjective:: Long discussion w/ pt and family about CT results, stable dx at present, cont inpt care x 24 more hours then d/c Reason For Visit: TRACYCARDIA Physical Exam Vital Signs: Temp Pulse Resp BP Pulse Ox 98.6 F 66 17 145/73 H 96 08/04/18 07:10 08/04/18 07:10 08/04/18 07:10 08/04/18 07:10 08/04/18 07:10 Intake & Output 08/03/18 08/04/18 08/05/18 06:59 06:59 06:59 Intake Total 450 1287 Output Total 0 Balance 450 1287 Weight 63.2 kg 63.8 kg General appearance: PRESENT: no acute distress, well-developed, well-nourished Head exam: PRESENT: atraumatic, normocephalic Eye exam: PRESENT: conjunctiva pink, EOMI, PERRLA. ABSENT: scleral icterus Ear exam: PRESENT: normal external ear exam Mouth exam: PRESENT: moist, tongue midline Neck exam: ABSENT: carotid bruit, JVD, lymphadenopathy, thyromegaly Respiratory exam: PRESENT: clear to auscultation santi. ABSENT: rales, rhonchi, wheezes Cardiovascular exam: PRESENT: RRR. ABSENT: diastolic murmur, rubs, systolic murmur Pulses: PRESENT: normal dorsalis pedis pul Vascular exam: PRESENT: normal capillary refill GI/Abdominal exam: PRESENT: normal bowel sounds, soft. ABSENT: distended, guarding, mass, organolmegaly, rebound, tenderness Rectal exam: PRESENT: deferred Extremities exam: PRESENT: full ROM. ABSENT: calf tenderness, clubbing, pedal edema Neurological exam: PRESENT: alert, awake, oriented to person, oriented to place , oriented to time, oriented to situation, CN II-XII grossly intact. ABSENT: motor sensory deficit Psychiatric exam: PRESENT: appropriate affect, normal mood. ABSENT: homicidal ideation, suicidal ideation Skin exam: PRESENT: dry, intact, warm. ABSENT: cyanosis, rash Results Laboratory Results: 08/04/18 06:25 08/04/18 06:25 08/04/18 08/04/18 06:25 06:25 WBC 4.4 RBC 2.93 L Hgb 9.8 L Hct 28.3 L MCV 96 MCH 33.5 H MCHC 34.8 RDW 15.1 H Plt Count 379 Seg Neutrophils % 76.6 Lymphocytes % 15.8 Monocytes % 4.3 Eosinophils % 3.1 Basophils % 0.2 Absolute Neutrophils 3.4 Absolute Lymphocytes 0.7 Absolute Monocytes 0.2 Absolute Eosinophils 0.1 Absolute Basophils 0.0 Sodium 140.6 Potassium 4.3 Chloride 107 Carbon Dioxide 26 Anion Gap 8 BUN 14 Creatinine 0.81 Est GFR ( Amer) > 60 Est GFR (Non-Af Amer) > 60 Glucose 79 Calcium 8.5 Magnesium 2.1 08/03/18 08/03/18 08/03/18 03:59 03:59 10:45 Creatine Kinase 23 L 21 L CK-MB (CK-2) 0.45 Troponin I 0.025 08/03/18 08/03/18 08/03/18 10:45 15:57 15:57 Creatine Kinase < 20 L CK-MB (CK-2) 0.41 0.28 Troponin I 0.017 0.013 Impressions: Chest X-Ray 08/02/18 21:49 IMPRESSION: New reticular opacities at the left lung could be secondary to asymmetric pulmonary edema. Recommend follow-up. Chest/Abdomen CTA 08/03/18 00:11 IMPRESSION: There is no pulmonary embolism Scattered multiple ill-defined nodular masses are seen in the bilateral lung [place]ana, too many to count and highly suspicious for metastatic disease to the lung. There is tiny right-sided pleural effusion. Pathologically enlarged lymph node is seen along the anterior right epicardial fat measuring 11 mm in short axis dimension. There is also presence of pathologically enlarged lymph node in the right hilum measuring 16 mm in short axis dimension. Assessment & Plan - Diagnosis (1) Lung cancer Qualifiers: Laterality: right Lung location: lower lobe of lung Qualified Code(s): C34.31 - Malignant neoplasm of lower lobe, right bronchus or lung Is this a current diagnosis for this admission?: Yes Plan: Spent >40m discussion about current status, next steps care, will follow - Time Time Spent with patient: 35 or more minutes
[2018-08-04] MEDS: CEFTRIAXONE SODIUM 1,000 MG in DEXTROSE 5%-WATER 50 ML IV SCH (09:41)
[2018-08-04] MEDS: ENOXAPARIN SODIUM INJ 40 MG/0.4 ML DISP.SYRIN SUBCUT SCH (09:41)
[2018-08-04] MEDS: DOCUSATE SODIUM 100 MG CAPSULE PO SCH (09:42)
[2018-08-04] MEDS: PREDNISONE 10 MG TABLET PO SCH (09:42)
[2018-08-04] MEDS: FOLIC ACID 1 MG TABLET PO SCH (09:42)
[2018-08-04] MEDS: CITALOPRAM HYDROBROMIDE 20 MG TABLET PO SCH (09:42)
[2018-08-04] MEDS: METOPROLOL SUCCINATE 25 MG TAB.SR.24H PO SCH (09:42)
[2018-08-04] MEDS: ONDANSETRON HCL 8 MG TABLET PO PRN (09:47)
[2018-08-04] MEDS ORDERED: (PENDING PHARMACY ID) (Folic Acid [Folic Acid] 0.4 MG) PO SCH (10:00)
[2018-08-04] MEDS ORDERED: CITALOPRAM HYDROBROMIDE 20 MG TABLET PO SCH (10:00)
--- NOTE | 2018-08-04 12:48 | PDOC PROGRESS REPORT ---
Subjective Progress Note for:: 08/04/18 Subjective:: Patient is currently doing well Patient's denied any chest pain denied any palpitation Patient's denied any other symptoms Reason For Visit: TRACYCARDIA Physical Exam Vital Signs: Temp Pulse Resp BP Pulse Ox 97.6 F 89 17 119/65 93 08/04/18 11:10 08/04/18 11:10 08/04/18 11:10 08/04/18 11:10 08/04/18 11:10 Intake & Output 08/03/18 08/04/18 08/05/18 06:59 06:59 06:59 Intake Total 450 1287 287 Output Total 0 Balance 450 1287 287 Weight 63.2 kg 63.8 kg General appearance: PRESENT: no acute distress, well-developed, well-nourished Head exam: PRESENT: atraumatic, normocephalic Eye exam: PRESENT: conjunctiva pink, EOMI, PERRLA. ABSENT: scleral icterus Ear exam: PRESENT: normal external ear exam Mouth exam: PRESENT: moist, tongue midline Neck exam: PRESENT: full ROM. ABSENT: carotid bruit, JVD, lymphadenopathy, thyromegaly Respiratory exam: PRESENT: clear to auscultation santi Cardiovascular exam: PRESENT: RRR. ABSENT: diastolic murmur, rubs, systolic murmur Pulses: PRESENT: normal dorsalis pedis pul, +2 pedal pulses bilateral Vascular exam: PRESENT: normal capillary refill GI/Abdominal exam: PRESENT: normal bowel sounds, soft. ABSENT: distended, guarding, mass, organolmegaly, rebound, tenderness Rectal exam: PRESENT: deferred Extremities exam: ABSENT: pedal edema Musculoskeletal exam: PRESENT: ambulatory Neurological exam: PRESENT: alert, awake, oriented to person, oriented to place , oriented to time, oriented to situation, CN II-XII grossly intact. ABSENT: motor sensory deficit Psychiatric exam: PRESENT: appropriate affect, normal mood. ABSENT: homicidal ideation, suicidal ideation Skin exam: PRESENT: dry, intact, warm. ABSENT: cyanosis, rash Results Laboratory Results: 08/04/18 06:25 08/04/18 06:25 08/04/18 08/04/18 06:25 06:25 WBC 4.4 RBC 2.93 L Hgb 9.8 L Hct 28.3 L MCV 96 MCH 33.5 H MCHC 34.8 RDW 15.1 H Plt Count 379 Seg Neutrophils % 76.6 Lymphocytes % 15.8 Monocytes % 4.3 Eosinophils % 3.1 Basophils % 0.2 Absolute Neutrophils 3.4 Absolute Lymphocytes 0.7 Absolute Monocytes 0.2 Absolute Eosinophils 0.1 Absolute Basophils 0.0 Sodium 140.6 Potassium 4.3 Chloride 107 Carbon Dioxide 26 Anion Gap 8 BUN 14 Creatinine 0.81 Est GFR ( Amer) > 60 Est GFR (Non-Af Amer) > 60 Glucose 79 Calcium 8.5 Magnesium 2.1 08/03/18 08/03/18 08/03/18 03:59 03:59 10:45 Creatine Kinase 23 L 21 L CK-MB (CK-2) 0.45 Troponin I 0.025 08/03/18 08/03/18 08/03/18 10:45 15:57 15:57 Creatine Kinase < 20 L CK-MB (CK-2) 0.41 0.28 Troponin I 0.017 0.013 Impressions: Chest X-Ray 08/02/18 21:49 IMPRESSION: New reticular opacities at the left lung could be secondary to asymmetric pulmonary edema. Recommend follow-up. Chest/Abdomen CTA 08/03/18 00:11 IMPRESSION: There is no pulmonary embolism Scattered multiple ill-defined nodular masses are seen in the bilateral lung triana, too many to count and highly suspicious for metastatic disease to the lung. There is tiny right-sided pleural effusion. Pathologically enlarged lymph node is seen along the anterior right epicardial fat measuring 11 mm in short axis dimension. There is also presence of pathologically enlarged lymph node in the right hilum measuring 16 mm in short axis dimension. Assessment & Plan - Diagnosis (1) Heart palpitations Is this a current diagnosis for this admission?: Yes Plan: Not clear etiology patient CT angiogram is negative due to the underlying dehydration's but patient's claim that she is drinking enough water The BNP is slightly elevated will get the echocardiogram We will consult the cardiology (2) Chronic obstructive pulmonary disease Qualifiers: COPD type: unspecified COPD Qualified Code(s): J44.9 - Chronic obstructive pulmonary disease, unspecified Is this a current diagnosis for this admission?: Yes Plan: Continues with as needed Xopenex nebulizer treatments instead of the DuoNeb (3) Hypertension Qualifiers: Hypertension type: essential hypertension Qualified Code(s): I10 - Essential (primary) hypertension Is this a current diagnosis for this admission?: Yes Plan: Patient may be get a benefit from the low-dose of beta-mando due to the palpitation issue (4) Anxiety disorder Qualifiers: Anxiety disorder type: generalized anxiety disorder Qualified Code(s): F41.1 - Generalized anxiety disorder Is this a current diagnosis for this admission?: Yes Plan: Continues to current medication (5) Lung cancer Qualifiers: Laterality: right Lung location: lower lobe of lung Qualified Code(s): C34.31 - Malignant neoplasm of lower lobe, right bronchus or lung Is this a current diagnosis for this admission?: Yes Plan: Follow with oncology (6) Urinary tract infection Qualifiers: Urinary tract infection type: site unspecified Is this a current diagnosis for this admission?: Yes Plan: Discontinue Cipro send the urine for culture start on IV Rocephin - Time Time Spent with patient: 15-24 minutes Medications reviewed and adjusted accordingly: Yes Anticipated discharge: Home Within: Other - Inpatient Certification Based on my medical assessment, after consideration of the patient's comorbidities, presenting symptoms, or acuity I expect that the services needed warrant INPATIENT care.: Yes I certify that my determination is in accordance with my understanding of Medicare's requirements for reasonable and necessary INPATIENT services [42 CFR 412.3e].: Yes Medical Necessity: Need Close Monitoring Due to Risk of Patient Decompensation Post Hospital Care: D/C Dental Laboratory Manager Documentation - Plan Summary Plan Summary: Discussed with the daughter regarding the patient's current conditions
[2018-08-04] MEDS: TEMAZEPAM 15 MG CAPSULE PO SCH (21:44)
[2018-08-05] MEDS: LANSOPRAZOLE 15 MG TAB.RAP.DR PO SCH (06:19)
[2018-08-05 06:49] LABS: ABSOLUTE EOSINOPHILS # (AUTO) 0.1 10^3/uL (0.0-0.6); ABSOLUTE LYMPHOCYTES (AUTO) 0.8 10^3/uL (0.5-4.7); ABSOLUTE MONOCYTES (AUTO) 0.3 10^3/uL (0.1-1.4); ABSOLUTE NEUT (AUTO) 3.2 10^3/uL (1.7-8.2); BASOPHILS % (AUTO) 0.9 % (0-2); EOSINOPHILS % (AUTO) 3.2 % (0-6); HEMATOCRIT 28.4 % (36.0-47.0); HEMOGLOBIN 10.1 g/dL (12.0-15.5); LYMPHOCYTES % (AUTO) 18.1 % (13-45); MEAN CORPUSCULAR HEMOGLOBIN 34.2 pg (27.0-33.4); MEAN CORPUSCULAR HGB CONC 35.7 g/dL (32.0-36.0); MEAN CORPUSCULAR VOLUME 96 fl (80-97); MONOCYTES % (AUTO) 6.2 % (3-13); PLATELET COUNT 404 10^3/uL (150-450); RED BLOOD COUNT 2.97 10^6/uL (3.72-5.28); RED CELL DISTRIBUTION WIDTH 15.2 % (11.5-14.0); SEGMENTED NEUTROPHILS % (AUTO) 71.6 % (42-78); TOTAL CELLS COUNTED % (AUTO) 100 %; WHITE BLOOD COUNT 4.5 10^3/uL (4.0-10.5)
[2018-08-05 07:04] LABS: ANION GAP 6 (5-19); BLOOD UREA NITROGEN 15 mg/dL (7-20); CALCIUM 8.9 mg/dL (8.4-10.2); CARBON DIOXIDE 28 mmol/L (22-30); CHLORIDE 105 mmol/L (98-107); GLUCOSE 82 mg/dL (75-110); POTASSIUM 4.5 mmol/L (3.6-5.0); SODIUM 139.3 mmol/L (137-145)
[2018-08-05 07:59] VITALS: BP 136/68
[2018-08-05] MEDS: DOCUSATE SODIUM 100 MG CAPSULE PO SCH (09:12)
[2018-08-05] MEDS: CITALOPRAM HYDROBROMIDE 20 MG TABLET PO SCH (09:12)
[2018-08-05] MEDS: PREDNISONE 10 MG TABLET PO SCH (09:12)
[2018-08-05] MEDS: FOLIC ACID 1 MG TABLET PO SCH (09:12)
[2018-08-05] MEDS: METOPROLOL SUCCINATE 25 MG TAB.SR.24H PO SCH (09:13)
[2018-08-05] MEDS: CEFTRIAXONE SODIUM 1,000 MG in DEXTROSE 5%-WATER 50 ML IV SCH (09:14)
[2018-08-05] MEDS: ENOXAPARIN SODIUM INJ 40 MG/0.4 ML DISP.SYRIN SUBCUT SCH (09:15)
--- NOTE | 2018-08-05 10:25 | PDOC DISCHARGE SUMMARY ---
General - Admit/Disc Date/PCP Admission Date/Primary Care Provider: 08/03/18 00:39 GENE SMITH MD Discharge Date: 08/05/18 - Discharge Diagnosis (1) Heart palpitations Is this a current diagnosis for this admission?: Yes Summary: Currently all resolved start on the beta-mando (2) Chronic obstructive pulmonary disease Is this a current diagnosis for this admission?: Yes Summary: Continue current medication (3) Hypertension Is this a current diagnosis for this admission?: Yes Summary: Clear all stable (4) Anxiety disorder Is this a current diagnosis for this admission?: Yes Summary: Stable (5) Lung cancer Is this a current diagnosis for this admission?: Yes Summary: Currently follow with the oncology and on a chemotherapy (6) Urinary tract infection Is this a current diagnosis for this admission?: Yes Summary: Patient urine culture is negative but the urine culture was positive for E. coli through the oncology office and sensitive to the Rocephin - Additional Information Resuscitation Status: Full Code Discharge Diet: Regular Discharge Activity: Activity As Tolerated Prescriptions: Cefuroxime Axetil [Ceftin 500 mg Tablet] 1 tab PO BID #10 tablet Metoprolol Succinate [Toprol Xl 25 mg Tab.sr] 12.5 mg PO DAILY #30 tab.sr.24h Home Medications: Citalopram Hydrobromide [Celexa 20 mg Tablet] 20 mg PO DAILY 08/03/18 Cyclobenzaprine HCl [Flexeril 10 mg Tablet] 10 mg PO Q8HP PRN 08/03/18 Folic Acid 0.4 mg PO DAILY 08/03/18 Lorazepam [Ativan 0.5 mg Tablet] 0.5 mg PO HSP PRN 08/03/18 Multivit-Min/Iron/Folic/Lutein [Centrum Silver Women Tablet] 1 tab PO DAILY 10/20 Ondansetron [Zofran Odt] 8 mg PO Q6HP PRN 08/03/18 Prednisone 10 mg PO DAILY 08/03/18 Promethazine HCl [Phenergan 25 mg Tablet] 25 mg PO Q4HP PRN 08/03/18 Temazepam [Restoril] 30 mg PO QHS 08/03/18 Tiotropium Br/Olodaterol HCl [Stiolto Respimat Inhal [place]] 2 puff IH QAM Cefuroxime Axetil [Ceftin 500 mg Tablet] 1 tab PO BID #10 tablet 08/05/18 Metoprolol Succinate [Toprol Xl 25 mg Tab.sr] 12.5 mg PO DAILY #30 tab.sr.24h History of Present Illness History of Present Illness: SENAIT LEONARD is a 72 year old female This is a 72-year-old female diagnosed with a stage IV lung cancer history of the COPD hypertension's anxiety came to the emergency department with the feeling funny on the left side of the chest which patients feel like a heart is coming out from the chest with palpitations and not feeling wellFurther episode like 2 or 3 times in patients came to the ER where patient initial workup including the CT angiogram was negative for PE except ongoing cancer Patient initial workup for the cardiac is also negative Patient also receiving the chemotherapy on a Tuesday Patient also have a recent diagnosed with a urinary tract infection and placed on the Cipro and according to the patient's take her to dose of the Cipro feel like the symptoms but no other reactions Patients was taking the beta-mando in the past but currently running the low blood pressures currently hold the medications Since denied any heart conditions Patient's currently denied any chest pain denied any shortness of the breath Hospital Course Hospital Course: Is a 72-year-old female with this history of the stage IV lung cancers failed to immunotherapy currently on a chemotherapy recently diagnosed with a urinary tract infection and put on Cipro came to the emergency department with the heart palpitations Patient's initial workup including a CT angiogram was negative Patient's echocardiogram was all stable per Dr. Flores the cardiology Patients giving IV antibiotic Rocephin DC the Cipro Patient received IV fluid Patient seen by the oncology and also seen by the cardiology Discussed with the patient and the daughter regarding the all the patient's current conditions Patient's more on the hallway without any problems Patient does not have any heart palpitations symptoms Patient's telemetry monitoring all stable Patient's p.o. intake is all stable Patient was started on the beta-mando as per cardiology advice Patient seen by the Dr. Flores Since the events Holter monitor per cardiology and the Dr. Flores is going to mail the patient home Very extensive discussions with the daughter regarding the patient's current conditions Physical Exam Vital Signs: Temp Pulse Resp BP Pulse Ox 98.7 F 69 17 136/68 H 94 08/05/18 09:58 11/03/18 09:58 08/05/18 09:58 08/05/18 09:58 08/05/18 09:58 Intake & Output 08/04/18 08/05/18 08/06/18 06:59 06:59 05:59 Intake Total 1287 1687 50 Balance 1287 1687 50 Weight 63.8 kg 63 kg General appearance: PRESENT: no acute distress, well-developed, well-nourished Head exam: PRESENT: atraumatic, normocephalic Eye exam: PRESENT: conjunctiva pink, EOMI, PERRLA. ABSENT: scleral icterus Ear exam: PRESENT: normal external ear exam Mouth exam: PRESENT: moist, tongue midline Neck exam: PRESENT: full ROM. ABSENT: carotid bruit, JVD, lymphadenopathy, thyromegaly Respiratory exam: PRESENT: clear to auscultation santi Cardiovascular exam: PRESENT: RRR. ABSENT: diastolic murmur, rubs, systolic murmur Pulses: PRESENT: normal dorsalis pedis pul, +2 pedal pulses bilateral Vascular exam: PRESENT: normal capillary refill GI/Abdominal exam: PRESENT: normal bowel sounds, soft. ABSENT: distended, guarding, mass, organolmegaly, rebound, tenderness Rectal exam: PRESENT: deferred Extremities exam: ABSENT: pedal edema Musculoskeletal exam: PRESENT: ambulatory Neurological exam: PRESENT: alert, awake, oriented to person, oriented to place , oriented to time, oriented to situation, CN II-XII grossly intact. ABSENT: motor sensory deficit Psychiatric exam: PRESENT: appropriate affect, normal mood. ABSENT: homicidal ideation, suicidal ideation Skin exam: PRESENT: dry, intact, warm. ABSENT: cyanosis, rash Results Laboratory Results: 08/05/18 06:29 08/05/18 06:29 08/05/18 08/05/18 06:29 06:29 WBC 4.5 RBC 2.97 L Hgb 10.1 L Hct 28.4 L MCV 96 MCH 34.2 H MCHC 35.7 RDW 15.2 H Plt Count 404 Seg Neutrophils % 71.6 Lymphocytes % 18.1 Monocytes % 6.2 Eosinophils % 3.2 Basophils % 0.9 Absolute Neutrophils 3.2 Absolute Lymphocytes 0.8 Absolute Monocytes 0.3 Absolute Eosinophils 0.1 Absolute Basophils 0.0 Sodium 139.3 Potassium 4.5 Chloride 105 Carbon Dioxide 28 Anion Gap 6 BUN 15 Creatinine 0.84 Est GFR ( Amer) > 60 Est GFR (Non-Af Amer) > 60 Glucose 82 Calcium 8.9 Magnesium 2.2 08/03/18 08/03/18 08/03/18 03:59 03:59 10:45 Creatine Kinase 23 L 21 L CK-MB (CK-2) 0.45 Troponin I 0.025 08/03/18 08/03/18 08/03/18 10:45 15:57 15:57 Creatine Kinase < 20 L CK-MB (CK-2) 0.41 0.28 Troponin I 0.017 0.013 Impressions: Chest X-Ray 08/02/18 21:49 IMPRESSION: New reticular opacities at the left lung could be secondary to asymmetric pulmonary edema. Recommend follow-up. Chest/Abdomen CTA 08/03/18 00:11 IMPRESSION: There is no pulmonary embolism Scattered multiple ill-defined nodular masses are seen in the bilateral lung triana, too many to count and highly suspicious for metastatic disease to the lung. There is tiny right-sided pleural effusion. Pathologically enlarged lymph node is seen along the anterior right epicardial fat measuring 11 mm in short axis dimension. There is also presence of pathologically enlarged lymph node in the right hilum measuring 16 mm in short axis dimension. Qualifiers - * PATIENT BEING DISCHARGED WITH ANY OF THE FOLLOWING DIAGNOSIS: No VTE patient discharged on overlapping Therapy?: Yes Plan Time Spent: Greater than 30 Minutes - Following office in 1 week Follow with the cardiology and follow-up with oncology as scheduled
--- NOTE | 2018-08-05 11:15 | PDOC PROGRESS REPORT ---
Subjective Progress Note for:: 08/05/18 Subjective:: DC home today, patient seems to be feeling quite well. Reason For Visit: TRACYCARDIA Physical Exam Vital Signs: Temp Pulse Resp BP Pulse Ox 98.7 F 69 17 136/68 H 94 08/05/18 09:58 08/05/18 09:58 08/05/18 09:58 08/05/18 09:58 08/05/18 09:58 Intake & Output 08/04/18 08/05/18 08/06/18 06:59 06:59 05:59 Intake Total 1287 1687 50 Balance 1287 1687 50 Weight 63.8 kg 63 kg General appearance: PRESENT: no acute distress, well-developed, well-nourished Head exam: PRESENT: atraumatic, normocephalic Eye exam: PRESENT: conjunctiva pink, EOMI, PERRLA. ABSENT: scleral icterus Ear exam: PRESENT: normal external ear exam Mouth exam: PRESENT: moist, tongue midline Neck exam: ABSENT: carotid bruit, JVD, lymphadenopathy, thyromegaly Respiratory exam: PRESENT: clear to auscultation santi. ABSENT: rales, rhonchi, wheezes Cardiovascular exam: PRESENT: RRR. ABSENT: diastolic murmur, rubs, systolic murmur Pulses: PRESENT: normal dorsalis pedis pul Vascular exam: PRESENT: normal capillary refill GI/Abdominal exam: PRESENT: normal bowel sounds, soft. ABSENT: distended, guarding, mass, organolmegaly, rebound, tenderness Rectal exam: PRESENT: deferred Extremities exam: PRESENT: full ROM. ABSENT: calf tenderness, clubbing, pedal edema Neurological exam: PRESENT: alert, awake, oriented to person, oriented to place , oriented to time, oriented to situation, CN II-XII grossly intact. ABSENT: motor sensory deficit Psychiatric exam: PRESENT: appropriate affect, normal mood. ABSENT: homicidal ideation, suicidal ideation Skin exam: PRESENT: dry, intact, warm. ABSENT: cyanosis, rash Results Laboratory Results: 08/05/18 06:29 08/05/18 06:29 08/05/18 08/05/18 06:29 06:29 WBC 4.5 RBC 2.97 L Hgb 10.1 L Hct 28.4 L MCV 96 MCH 34.2 H MCHC 35.7 RDW 15.2 H Plt Count 404 Seg Neutrophils % 71.6 Lymphocytes % 18.1 Monocytes % 6.2 Eosinophils % 3.2 Basophils % 0.9 Absolute Neutrophils 3.2 Absolute Lymphocytes 0.8 Absolute Monocytes 0.3 Absolute Eosinophils 0.1 Absolute Basophils 0.0 Sodium 139.3 Potassium 4.5 Chloride 105 Carbon Dioxide 28 Anion Gap 6 BUN 15 Creatinine 0.84 Est GFR ( Amer) > 60 Est GFR (Non-Af Amer) > 60 Glucose 82 Calcium 8.9 Magnesium 2.2 08/03/18 08/03/18 08/03/18 03:59 03:59 10:45 Creatine Kinase 23 L 21 L CK-MB (CK-2) 0.45 Troponin I 0.025 08/03/18 08/03/18 08/03/18 10:45 15:57 15:57 Creatine Kinase < 20 L CK-MB (CK-2) 0.41 0.28 Troponin I 0.017 0.013 Impressions: Chest X-Ray 08/02/18 21:49 IMPRESSION: New reticular opacities at the left lung could be secondary to asymmetric pulmonary edema. Recommend follow-up. Chest/Abdomen CTA 08/03/18 00:11 IMPRESSION: There is no pulmonary embolism Scattered multiple ill-defined nodular masses are seen in the bilateral lung triana, too many to count and highly suspicious for metastatic disease to the lung. There is tiny right-sided pleural effusion. Pathologically enlarged lymph node is seen along the anterior right epicardial fat measuring 11 mm in short axis dimension. There is also presence of pathologically enlarged lymph node in the right hilum measuring 16 mm in short axis dimension. Assessment & Plan - Diagnosis (1) Lung cancer Qualifiers: Laterality: right Lung location: lower lobe of lung Qualified Code(s): C34.31 - Malignant neoplasm of lower lobe, right bronchus or lung Is this a current diagnosis for this admission?: Yes Plan: Patient will follow up on Tuesday
== END 2018-08-05 11:05 | disposition home or self-care (01) | DRG 309 ==
LOC: ER 21:46 → EH 08-03 00:17 → OBSVTOIN 08-03 00:39 → INTOOBSV 08-03 00:39 → UNDOADMOB 08-03 00:39 → EH 08-03 00:39 → 3S 08-03 02:49
PROVIDERS: ADMIT Family Medicine; ATTEND Family Medicine
DX: R00.2 Palpitations (principal); C34.31 Malignant neoplasm of lower lobe, right bronchus or lung; C34.92 Malignant neoplasm of unspecified part of left bronchus or lung; N39.0 Urinary tract infection, site not specified; I10 Essential (primary) hypertension; J44.9 Chronic obstructive pulmonary disease, unspecified; F41.1 Generalized anxiety disorder; Z79.899 Other long term (current) drug therapy
CPT/HCPCS: 36415; 71045; 71275; 80048; 80053; 82550; 82553; 83735; 83880; 84439; 84443; 84484; 85025; 85610; 87040; 87086; 93005; 93010; 93306; 99285; J0696; J1642; J1650; J3490; J7030; J7512; S0119

== ENCOUNTER → 2018-10-11 | Outpatient (CLI) | payer MEDICARE, BC ==
--- NOTE | 2018-10-11 11:05 | RADIOLOGY REPORT (SQ) ---
EXAM DESCRIPTION: CT CHEST WITH; CT ABD/PELVIS WITH IV ONLY COMPLETED DATE/TIME: 10/11/2018 10:24 am; 10/11/2018 10:25 am REASON FOR STUDY: LUNG CA (C34.11) C34.11 MALIGNANT NEOPLASM OF UPPER LOBE, RIGHT BRONCHUS OR L COMPARISON: 08/03/2018. PET-CT 06/27/2018. CONTRAST TYPE AND DOSE: contrast/concentration: Isovue 350.00 mg/ml; Total Contrast Delivered: 74.0 ml; Total Saline Delivered: 67.0 ml RENAL FUNCTION: Within acceptable limits. TECHNIQUE: CT scan of the chest performed using helical scanning technique with dynamic intravenous contrast injection. Images reviewed with lung, soft tissue and bone windows. Reconstructed coronal a nd sagittal MPR images reviewed. All images stored on PACS. CT scan of the abdomen and pelvis performed with intravenous and with oral contrastusing helical scan faizan technique with dynamic intravenous contrast injection. Images reviewed with lung, soft tissue a nd bone windows. Reconstructed coronal and sagittal MPR images reviewed. Delayed images for evaluat ion of the urinary system also acquired and evaluated. All images stored on PACS. All CT scanners at this facility use dose modulation, iterative reconstruction, and/or weight based d osing when appropriate to reduce radiation dose to as low as reasonably achievable (ALARA). [facility]: Dose Right [facility]: CareDose [facility]: Dose Right [facility]: Teradose 4D [facility]: [employer] RADIATION DOSE: CT Rad equipment meets quality standard of care and radiation dose reduction techniq ues were employed. CTDIvol: 5.1 - 6.3 mGy. DLP: 1190 mGy-cm. . LIMITATIONS: None. FINDINGS: CHEST: LUNGS AND PLEURA: Innumerable lung lesions scattered throughout bilaterally, upper and lower lobes. Many of these look less conspicuous. Some of this likely represents decrease in size of the nodules. Some of this may also represent decrease in the amount of adjacent airspace disease. No developing pleural effusion. HILAR AND MEDIASTINAL STRUCTURES: Largest discrete node lies in the upper mediastinum and measures 1. 3 cm short axis. This looks similar to slightly smaller. Less well-defined nodes in the mediastinum and right hilum also, generally stable. HEART AND VASCULAR STRUCTURES: Cardiac enlargement without pericardial effusion. Considerable woods ry calcification. Heavy atherosclerotic plaque in the aorta. No dissection or aneurysm or gross alejandra tral pulmonary embolus. HARDWARE: Left port. THYROID AND OTHER SOFT TISSUES: No masses. No adenopathy. BONES: No significant finding. OTHER: No other significant finding. ABDOMEN AND PELVIS: LIVER: Normal size. No masses. No dilated ducts. SPLEEN: Normal size. No focal lesions. PANCREAS: No masses. No significant calcifications. No adjacent inflammation or peripancreatic fluid collections. Pancreatic duct not dilated. GALLBLADDER: Surgically absent. ADRENAL GLANDS: No significant masses or asymmetry. RIGHT KIDNEY AND URETER: No solid masses. No significant calcification. No hydronephrosis or hydroure ter. LEFT KIDNEY AND URETER: No solid masses. No significant calcification. No hydronephrosis or hydrouret er. AORTA AND VESSELS: Atherosclerotic aorta without focal aneurysm or dissection. No gross arterial or venous occlusion. RETROPERITONEUM: No retroperitoneal adenopathy, hemorrhage or masses. BOWEL AND PERITONEAL CAVITY: Numerous fluid-filled loops of bowel without discrete point of obstructi on detected. Suspect mild ileus. Large amount of stool in the colon. APPENDIX: Surgically absent. ABDOMINAL WALL: No masses. No hernias. PELVIS: No mass or free fluid. Normal bladder. BONES: Osteopenic. No fracture or bone lesion detected. OTHER: No other significant finding. IMPRESSION: 1. Suspect slight improvement in pulmonary nodules. However, persistent extensive metastatic disease remains. Multiplicity of nodules makes assessment of change difficult. 2. Probable ileus. No definite metastatic disease in the abdomen or pelvis. TECHNICAL DOCUMENTATION: JOB ID: [id number] Quality ID # [id number]: Final reports with documentation of one or more dose reduction techniques (e.g., Au tomated exposure control, adjustment of the mA and/or kV according to patient size, use of iterative reconstruction technique) 2010 [employer]- All Rights Reserved Reading location - IP/workstation name: [email or web address]
== END ==
LOC: RAD 09:41
PROVIDERS: ATTEND Physician Assistant Medical
DX: C34.11 Malignant neoplasm of upper lobe, right bronchus or lung (principal)
CPT/HCPCS: 71260; 74177

== ENCOUNTER → 2018-10-17 | Outpatient (CLI) | payer MEDICARE, BC ==
--- NOTE | 2018-10-17 16:31 | RADIOLOGY REPORT (SQ) ---
EXAM DESCRIPTION: CHEST 2 VIEWS COMPLETED DATE/TIME: 10/17/2018 4:20 pm REASON FOR STUDY: LEFT SIDED CHEST PAIN R07.9 CHEST PAIN, UNSPECIFIED COMPARISON: Chest CT 10/11/2018. NUMBER OF VIEWS: Two view TECHNIQUE: Frontal and lateral radiographic images of the chest acquired. LIMITATIONS: None. FINDINGS: LUNGS AND PLEURA: Multiple bilateral pulmonary nodules not significantly changed. No evid ence of cavitation. Chronic volume loss on the right. No effusions. MEDIASTINUM AND HILAR STRUCTURES: Stable heart size and mediastinal structures. HEART AND VASCULAR STRUCTURES: Stable appearance. BONES: No acute findings. HARDWARE: None in the chest. OTHER: Stable position of left-sided port. IMPRESSION: Bilateral pulmonary nodules. No significant change. TECHNICAL DOCUMENTATION: JOB ID: [id number] [employer]- All Rights Reserved Reading location - IP/workstation name: [email or web address], [facility]
== END ==
LOC: RAD 16:07
PROVIDERS: ATTEND Family Medicine
DX: R07.9 Chest pain, unspecified (principal)
CPT/HCPCS: 71046

== ENCOUNTER → 2019-01-02 | Outpatient (CLI) | payer MEDICARE, BC ==
--- NOTE | 2019-01-02 11:38 | RADIOLOGY REPORT (SQ) ---
EXAM DESCRIPTION: CT CHEST WITH COMPLETED DATE/TIME: 01/02/2019 10:29 am REASON FOR STUDY: C34.11 MALIGNANT NEOPLASM OF UPPER LOBE,RIGHT BRONCHUS OR LUNG C34.11 MALIGNANT N EOPLASM OF UPPER LOBE, RIGHT BRONCHUS OR L COMPARISON: 10/11/2018 TECHNIQUE: CT scan of the chest performed using helical scanning technique with dynamic intravenous contrast injection. Images reviewed with lung, soft tissue and bone windows. Reconstructed coronal and sagittal MPR and MIP images reviewed. All images stored on PACS. All CT scanners at this facility use dose modulation, iterative reconstruction, and/or weight based d osing when appropriate to reduce radiation dose to as low as reasonably achievable (ALARA). [facility]: Dose Right [facility]: CareDose [facility]: Dose Right [facility]: Teradose 4D [facility]: MobileSpaces CONTRAST TYPE AND DOSE: 78 mL Omnipaque 350 RENAL FUNCTION: Within acceptable limits. RADIATION DOSE: Total exam DLP: 1306.62 mGy-cm. LIMITATIONS: None. FINDINGS: LUNGS AND PLEURA: Multiple, innumerable ill-defined spiculated nodules throughout the erich gs. Many of the nodules have increased in size since the previous examination. Some of the largest nodules in the right lung measure up to 2.1 cm. Some of the largest in the left lung measure up to a pproximately 1.8 cm. These findings suggest interval progression of metastatic disease. Post surgical changes in the right upper lobe, stable findings. Emphysematous and interstitial mauro es in the lungs, stable findings. Small right pleural effusion, stable finding. No evidence of pneu mothorax. The central airways are clear. HILAR AND MEDIASTINAL STRUCTURES: Prominent mediastinal and hilar lymph nodes have increased in size since the previous examination. Some of the largest mediastinal lymph nodes measure approximately 2 .5 cm in AP diameter. Some of the largest hilar nodes measure approximately 2.0 cm in AP diameter. HEART AND VASCULAR STRUCTURES: Atherosclerotic changes involving the thoracic aorta. Coronary arter y calcifications. No aneurysm or dissection. No central pulmonary emboli. No pericardial effusion. HARDWARE: Left Gdvpch-[id number] catheter, stable finding. UPPER ABDOMEN: Please see CT abdomen report. THYROID AND OTHER SOFT TISSUES: The visualized thyroid gland is stable in appearance with hypoattenu ated nodule in the right lobe. Bilateral supraclavicular lymphadenopathy, unchanged finding. BONES: The osseous structures are stable in appearance. OTHER: No other significant finding. IMPRESSION: 1. Since the previous examination dated 10/11/2018, an interval increase in size of the m ultiple, innumerable, ill-defined spiculated nodules throughout both lungs. These findings suggest i nterval progression of metastatic disease. 2. Prominent mediastinal and hilar lymph nodes have increased in size. Bilateral supraclavicular ly mphadenopathy, basically unchanged finding. 3. Emphysematous and interstitial changes in the lungs. 4. The visualized thyroid gland is stable in appearance with hypoattenuated nodule in the right lobe . 5. Additional stable findings as above. TECHNICAL DOCUMENTATION: JOB ID: [id number] Quality ID # [id number]: Final reports with documentation of one or more dose reduction techniques (e.g., Au tomated exposure control, adjustment of the mA and/or kV according to patient size, use of iterative reconstruction technique) 2010 [employer]- All Rights Reserved Reading location - IP/workstation name: [email or web address]
--- NOTE | 2019-01-02 11:52 | RADIOLOGY REPORT (SQ) ---
EXAM DESCRIPTION: CT ABD/PELVIS WITH IV ONLY COMPLETED DATE/TIME: 01/02/2019 10:29 am REASON FOR STUDY: C34.11 MALIGNANT NEOPLASM OF UPPER LOBE,RIGHT BRONCHUS OR LUNG C34.11 MALIGNANT N EOPLASM OF UPPER LOBE, RIGHT BRONCHUS OR L COMPARISON: 10/11/2018 TECHNIQUE: CT scan of the abdomen and pelvis performed using helical scanning technique with dynamic intravenous contrast injection. No oral contrast. Images reviewed with lung, soft tissue, and bone windows. Reconstructed coronal and sagittal MPR images reviewed. Delayed images for evaluation of the urinary system also acquired. All images stored on PACS. All CT scanners at this facility use dose modulation, iterative reconstruction, and/or weight based d osing when appropriate to reduce radiation dose to as low as reasonably achievable (ALARA). [facility]: Dose Right [facility]: CareDose [facility]: Dose Right [facility]: Teradose 4D [facility]: GoEuro CONTRAST TYPE AND DOSE: contrast/concentration: Isovue 350.00 mg/ml; Total Contrast Delivered: 78.0 ml; Total Saline Delivered: 67.0 ml RENAL FUNCTION: Within acceptable limits. RADIATION DOSE: CT Rad equipment meets quality standard of care and radiation dose reduction techniq ues were employed. CTDIvol: 4.4 - 5.7 mGy. DLP: 1307 mGy-cm.. LIMITATIONS: None. FINDINGS: LOWER CHEST: Please see CT chest report. LIVER: Stable mild intra and extrahepatic biliary dilatation in a post cholecystectomy patient. The hepatic and portal veins are patent. Small stable hypoattenuated lesion in the dome of the liver. SPLEEN: Splenule, normal anatomic variant. PANCREAS: No masses. No significant calcifications. No adjacent inflammation or peripancreatic fluid collections. Pancreatic duct not dilated. GALLBLADDER: Prior cholecystectomy. ADRENAL GLANDS: No significant masses or asymmetry. RIGHT KIDNEY AND URETER: Very small stable right renal cysts. No significant calcifications. No hy dronephrosis or hydroureter. LEFT KIDNEY AND URETER: Small stable left renal cysts. Incomplete duplication of the left kidney, n ormal anatomic variant. No significant calcifications. No hydronephrosis or hydroureter. AORTA AND VESSELS: Atherosclerotic changes involving the abdominal aorta and branch vessels. No ane urysm. No dissection. Renal arteries, SMA, celiac without stenosis. RETROPERITONEUM: No retroperitoneal adenopathy, hemorrhage or masses. BOWEL AND PERITONEAL CAVITY: Constipation. No masses or inflammatory changes. No free fluid or vinay toneal masses. APPENDIX: Prior appendectomy. PELVIS: Prior hysterectomy. No free fluid. Normal bladder. ABDOMINAL WALL: No masses. No hernias. BONES: The osseous structures are stable in appearance with marked degenerative changes and disc dis ease at L2-3 and to a lesser degree at L1-2. OTHER: No other significant finding. IMPRESSION: 1. Stable post surgical changes since the prior examination dated 10/11/2018. 2. Stable bilateral renal cysts. 3. Small stable hypoattenuated lesion in the dome of the liver. 4. Additional findings as above. TECHNICAL DOCUMENTATION: JOB ID: [id number] Quality ID # [id number]: Final reports with documentation of one or more dose reduction techniques (e.g., Au tomated exposure control, adjustment of the mA and/or kV according to patient size, use of iterative reconstruction technique) 2010 [employer]- All Rights Reserved Reading location - IP/workstation name: [email or web address]
== END ==
LOC: RAD 10:31
PROVIDERS: ATTEND Internal Medicine
DX: C34.11 Malignant neoplasm of upper lobe, right bronchus or lung (principal); Q61.02 Congenital multiple renal cysts
CPT/HCPCS: 71260; 74177

== ENCOUNTER → 2019-01-12 | Outpatient (CLI) | payer MEDICARE, BC ==
[2019-01-12 10:51] LABS: ARTERIAL BLOOD BASE EXCESS 0.5 mmol/L; ARTERIAL BLOOD H2CO3 1.04 mmol/L (1.05-1.35); ARTERIAL BLOOD HCO3 23.8 mmol/L (20-24); ARTERIAL BLOOD O2 SATURATION 96.9 % (94-98); ARTERIAL BLOOD PCO2 34.4 mmHg (35-45); ARTERIAL BLOOD PH 7.46 (7.35-7.45); ARTERIAL BLOOD PO2 84.9 mmHg (80-100); ARTERIAL BLOOD TOTAL CO2 24.9 mmol/L (21-25)
[2019-01-12 10:54] LABS: ARTERIAL BLOOD FIO2 2L
== END ==
LOC: LAB 10:16
PROVIDERS: ATTEND Internal Medicine Pulmonary Disease
DX: J44.9 Chronic obstructive pulmonary disease, unspecified (principal)
CPT/HCPCS: 36600; 82803

== ENCOUNTER 2019-01-22 12:18 | Inpatient (IN) | payer MEDICARE, BC ==
[2019-01-22] MEDS ORDERED: IPRATROPIUM/ALBUTEROL 0.5-2.5 MG/3 ML AMPUL NEB ONE (13:21)
--- NOTE | 2019-01-22 13:25 | ER Document Report ---
ED Medical Screen (RME) - General Chief Complaint: Breathing Difficulty Stated Complaint: DIFFICULTY BREATHING Time Seen by Provider: 01/22/19 13:11 Primary Care Provider: ANGELA ROLON MD [Primary Care Provider] - Follow up as needed Mode of Arrival: Wheelchair Information source: Patient TRAVEL OUTSIDE OF THE [place] IN LAST 30 DAYS: No - HPI Patient complains to provider of: sob Notes: 01/22/19 13:25 Patient here with complaints of chest pain and shortness of breath. The patient has a history of metastatic lung cancer. She is currently not receiving chemotherapy. She also has a history of arthritis. Here with complaints of chest pain, worsening shortness of breath, generalized fatigue and joint pain. No fever. She is on home oxygen at home. She complains of worsening cough specifically if she tries to exert herself or talk too much. She states that she discussed this with her oncologist who recommended she come the emergency department for evaluation and potential admission to the hospital for further evaluation. Exam No distress, nontoxic-appearing. Diminished breath sounds throughout. Frequent cough noted. Plan CBC, CMP, troponin, urine, chest x-ray, DuoNeb, EKG. An initial examination was made on the patient as part of the triage process, and it was determined a more comprehensive evaluation was necessary. Initial labs were ordered and patient was transferred to another provider in the ED who assumed care and finished evaluation and plan. - Related Data Allergies/Adverse Reactions: No Known Allergies Allergy (Verified 01/22/19 12:19) Past Medical History - Past Medical History Cardiac Medical History: Reports: Hx Hypertension Denies: Hx Coronary Artery Disease, Hx Heart Attack Pulmonary Medical History: Reports: Hx COPD Denies: Hx Asthma, Hx Bronchitis, Hx Pneumonia Neurological Medical History: Denies: Hx Cerebrovascular Accident, Hx Seizures Renal/ Medical History: Denies: Hx Peritoneal Dialysis Malignancy Medical History: Reports: Hx Lung Cancer - Stage IV lung cancer with bilateral lung nodules as well as mediastinal lym Musculoskeltal Medical History: Reports Hx Arthritis - RA Psychiatric Medical History: Denies: Hx Depression Past Surgical History: Reports: Other - Port placement, lobectomy - Immunizations Immunizations up to date: Yes Hx Diphtheria, Pertussis, Tetanus Vaccination: Yes Physical Exam - Vital signs Vitals: Temp Pulse Resp BP Pulse Ox 98.0 F 98 16 120/60 97 01/22/19 12:25 01/22/19 12:25 01/22/19 12:25 01/22/19 12:25 01/22/19 12:25 Course - Vital Signs Vital signs: Temp Pulse Resp BP Pulse Ox 98.0 F 98 16 120/60 97 01/22/19 12:25 01/22/19 12:25 01/22/19 12:25 01/22/19 12:25 01/22/19 12:25 Doctor's Discharge - Discharge Referrals: ANGELA ROLON MD [Primary Care Provider] - Follow up as needed
--- NOTE | 2019-01-22 14:09 | RADIOLOGY REPORT (SQ) ---
EXAM DESCRIPTION: CHEST 2 VIEWS COMPLETED DATE/TIME: 01/22/2019 1:47 pm REASON FOR STUDY: sob, hx of lung CA COMPARISON: CT chest 01/02/2019, 10/11/2018, 08/03/2018 Chest films 10/17/2018, 08/02/2018 EXAM PARAMETERS: NUMBER OF VIEWS: two views TECHNIQUE: Digital Frontal and Lateral radiographic views of the chest acquired. RADIATION DOSE: NA LIMITATIONS: none FINDINGS: LUNGS AND PLEURA: There is new opacification at the right lung base, with blurring of the right hemidiaphragm on the lateral view. This is either due to basilar airspace disease or pleural f luid. This is new compared to 01/02/2019 CT chest. Again, multiple metastatic pulmonary nodules are present throughout both lungs. Enlarged airspaces a re present at the apices from obstructive disease. No left pleural effusion. No right or left pneum othorax. MEDIASTINUM AND HILAR STRUCTURES: No masses or contour abnormalities. HEART AND VASCULAR STRUCTURES: Heart normal size. No evidence for failure. BONES: No acute findings. HARDWARE: Left-sided permanent central line tip superior vena cava. Clips right upper quadrant post cholecystectomy OTHER: No other significant finding. IMPRESSION: New right basilar airspace disease with or without pleural fluid. TECHNICAL DOCUMENTATION: JOB ID: [id number] [employer]- All Rights Reserved Reading location - IP/workstation name: [email or web address]
[2019-01-22 14:52] LABS: HEMOGLOBIN 11.1 g/dL (12.0-15.5); MEAN CORPUSCULAR HEMOGLOBIN 32.7 pg (27.0-33.4); MEAN CORPUSCULAR HGB CONC 34.6 g/dL (32.0-36.0); MEAN CORPUSCULAR VOLUME 95 fl (80-97); PLATELET COUNT 347 10^3/uL (150-450); RED BLOOD COUNT 3.39 10^6/uL (3.72-5.28); RED CELL DISTRIBUTION WIDTH 14.8 % (11.5-14.0); WHITE BLOOD COUNT 9.3 10^3/uL (4.0-10.5)
[2019-01-22 15:13] LABS: ALANINE AMINOTRANSFERASE 23 U/L (9-52); ALBUMIN 3.5 g/dL (3.5-5.0); ALKALINE PHOSPHATASE 104 U/L (38-126); ANION GAP 6 (5-19); ASPARTATE AMINO TRANSFERASE 32 U/L (14-36); BILIRUBIN,DIRECT 0.3 mg/dL (0.0-0.4); BILIRUBIN,TOTAL 0.6 mg/dL (0.2-1.3); BLOOD UREA NITROGEN 12 mg/dL (7-20); CALCIUM 10.4 mg/dL (8.4-10.2); CARBON DIOXIDE 27 mmol/L (22-30); CHLORIDE 100 mmol/L (98-107); GLUCOSE 113 mg/dL (75-110); POTASSIUM 5.1 mmol/L (3.6-5.0); SODIUM 133.3 mmol/L (137-145)
[2019-01-22 15:19] LABS: ABSOLUTE LYMPHOCYTES# (MANUAL) 0.7 10^3/uL (0.5-4.7); ABSOLUTE MONOCYTES # (MANUAL) 0.1 10^3/uL (0.1-1.4); BASOPHILS % (MANUAL) 0 % (0-2); EOSINOPHILS % (MANUAL) 0 % (0-6); LYMPHOCYTES % (MANUAL) 7 % (13-45); MONOCYTES % (MANUAL) 1 % (3-13); SEGMENTED NEUTROPHILS % (MAN) 92 % (42-78); TOTAL CELLS COUNTED 100
[2019-01-22 15:20] LABS: PLATELET COMMENT ADEQUATE
[2019-01-22] MEDS ORDERED: ASPIRIN 325 MG TABLET PO ONE (15:37)
[2019-01-22] MEDS ORDERED: HEPARIN SOD (PORCINE) 1,000 UNIT/ML 10 ML VIAL IV ONE (15:38)
[2019-01-22 15:49] LABS: PROTHROMBIN TIME 13.7 SEC (11.4-15.4)
[2019-01-22 15:50] LABS: PARTIAL THROMBOPLASTIN TIME 30.4 SEC (23.5-35.8)
[2019-01-22] MEDS ORDERED: NORFLURANE/PENTAFLUOROPROPANE 30 ML SPRAY TP ONE (15:57)
--- NOTE | 2019-01-22 15:57 | ER Document Report ---
ED General - General Chief Complaint: Breathing Difficulty Stated Complaint: DIFFICULTY BREATHING Time Seen by Provider: 01/22/19 13:11 Primary Care Provider: ANGELA ROLON MD [ACTIVE STAFF] - Follow up as needed Mode of Arrival: Wheelchair TRAVEL OUTSIDE OF THE [place] IN LAST 30 DAYS: No - HPI Notes: Patient is a 73-year-old female that presents to the emergency department for chief complaint of shortness of breath and chest pain. Patient reports increased shortness of breath over the last few weeks. She does wear home oxygen and has been titrating herself up from her 2.5 to 3 L nasal cannula. Patient has a diagnosis of lung cancer and her last chemotherapy treatment was on 12/22. She is in the process of getting a new chemotherapy approved and was scheduled to discuss this with her oncologist tomorrow. Patient is also complaining of a sternal and right-sided chest pain that has been intermittent over the last week. She states it is sharp and worse when she is up moving around or when she is coughing. She states she is coughing more but denies any increase in sputum or fevers. She has been using her home breathing treatments. She denies history of ND in the past and states her last stress test was in 2017 and was normal. She has never had a heart catheterization. She did not take any aspirin today. Currently she states the pain is a dull ache and only severe when she is coughing. Past Medical History: Lung cancer Past Surgical History: Reviewed in chart Social History: Reviewed in chart Family History: Reviewed and noncontributory for presenting illness Allergies: Reviewed, see documented allergy list. REVIEW OF SYSTEMS: CONSTITUTIONAL : No fever No chills No diaphoresis No recent illness EENT: No vision changes No congestion No sore throat CARDIOVASCULAR: chest pain No palpitations RESPIRATORY: shortness of breath cough difficulty breathing GASTROINTESTINAL: No abdominal pain No nausea No vomiting No diarrhea GENITOURINARY: No dysuria No hematuria No difficulty urinating MUSCULOSKELETAL: No back pain No leg pain No arm pain SKIN: No rashes No lesions LYMPHATIC: No swollen, enlarged glands. NEUROLOGICAL: No lightheadedness No headache No weakness No paresthesias PSYCHIATRIC: No anxiety No depression PHYSICAL EXAMINATION: Vital signs reviewed, nursing noted reviewed. GENERAL: Well-appearing, well-nourished and in no acute distress. HEAD: Atraumatic, normocephalic. EYES: Eyes appear normal, extraocular movements intact, sclera anicteric, conjunctiva are normal. ENT: nares patent, oropharynx clear without exudates. Moist mucous membranes. NECK: Normal range of motion, supple without lymphadenopathy LUNGS: Breath sounds diminished to auscultation bilaterally and equal. No wheezes rales or rhonchi. HEART: Regular rate and rhythm without murmurs. +2/4 bilateral radial pulses ABDOMEN: Soft, nontender, normoactive bowel sounds. No rebound, guarding, or rigidity. No masses appreciated. EXTREMITIES: Nontender, good range of motion, no pitting or edema. NEUROLOGICAL: No focal neurological deficits. Moves all extremities spontaneously Motor and sensory grossly intact on exam. PSYCH: Normal mood, normal affect. SKIN: Warm, Dry, normal turgor, no rashes or lesions noted on exposed skin - Related Data Allergies/Adverse Reactions: No Known Allergies Allergy (Verified 01/22/19 12:19) Past Medical History - General Information source: Patient - Social History Smoking Status: Smoker,Current Status Unk Family History: Reviewed & Not Pertinent Patient has suicidal ideation: No Patient has homicidal ideation: No - Past Medical History Cardiac Medical History: Reports: Hx Hypertension Denies: Hx Coronary Artery Disease, Hx Heart Attack Pulmonary Medical History: Reports: Hx COPD Denies: Hx Asthma, Hx Bronchitis, Hx Pneumonia Neurological Medical History: Denies: Hx Cerebrovascular Accident, Hx Seizures Renal/ Medical History: Denies: Hx Peritoneal Dialysis Malignancy Medical History: Reports: Hx Lung Cancer - Stage IV lung cancer with bilateral lung nodules as well as mediastinal lym Musculoskeletal Medical History: Reports Hx Arthritis - RA Psychiatric Medical History: Denies: Hx Depression Past Surgical History: Reports: Other - Port placement, lobectomy - Immunizations Immunizations up to date: Yes Hx Diphtheria, Pertussis, Tetanus Vaccination: Yes Hx Pneumococcal Vaccination: 07/03/17 Physical Exam - Vital signs Vitals: Temp Pulse Resp BP Pulse Ox 98.0 F 98 16 120/60 97 01/22/19 12:25 01/22/19 12:25 01/22/19 12:25 01/22/19 12:25 01/22/19 12:25 Course - Re-evaluation Re-evalutation: 01/22/19 15:55 Vitals reviewed. Nursing notes reviewed. Patient is currently oxygenating on 3 L nasal cannula. Her lung sounds are diminished with no audible wheezing. EKG shows PVCs with no STEMI. Patient has bibasilar airspace disease with no acute pneumonia or leukocytosis. She is afebrile. Her troponin is elevated at 0.179 which is new for this patient. Patient will be started on aspirin and heparin for NSTEMI. Plan to admit to the hospital for further care. Laboratory 01/22/19 01/22/19 01/22/19 14:31 14:31 14:31 WBC 9.3 RBC 3.39 L Hgb 11.1 L Hct 32.0 L MCV 95 MCH 32.7 MCHC 34.6 RDW 14.8 H Plt Count 347 Total Counted 100 Seg Neutrophils % Not Reportable Seg Neuts % (Manual) 92 H Lymphocytes % Not Reportable Lymphocytes % (Manual) 7 L Monocytes % Not Reportable Monocytes % (Manual) 1 L Eosinophils % Not Reportable Eosinophils % (Manual) 0 Basophils % Not Reportable Basophils % (Manual) 0 Absolute Neutrophils Not Reportable Abs Neuts (Manual) 8.6 H Absolute Lymphocytes Not Reportable Abs Lymphs (Manual) 0.7 Absolute Monocytes Not Reportable Abs Monocytes (Manual) 0.1 Absolute Eosinophils Not Reportable Absolute Eos (Manual) 0.0 Absolute Basophils Not Reportable Abs Basophils (Manual) 0.0 Platelet Comment ADEQUATE PT INR APTT Sodium 133.3 L Potassium 5.1 H Chloride 100 Carbon Dioxide 27 Anion Gap 6 BUN 12 Creatinine 0.91 Est GFR ( Amer) > 60 Est GFR (Non-Af Amer) > 60 Glucose 113 H Calcium 10.4 H Magnesium 2.1 Total Bilirubin 0.6 Direct Bilirubin 0.3 Neonat Total Bilirubin Not Reportable Neonat Direct Bilirubin Not Reportable Neonat Indirect Bili Not Reportable AST 32 ALT 23 Alkaline Phosphatase 104 Troponin I 0.179 Total Protein 7.0 Albumin 3.5 01/22/19 14:31 WBC RBC Hgb Hct MCV MCH MCHC RDW Plt Count Total Counted Seg Neutrophils % Seg Neuts % (Manual) Lymphocytes % Lymphocytes % (Manual) Monocytes % Monocytes % (Manual) Eosinophils % Eosinophils % (Manual) Basophils % Basophils % (Manual) Absolute Neutrophils Abs Neuts (Manual) Absolute Lymphocytes Abs Lymphs (Manual) Absolute Monocytes Abs Monocytes (Manual) Absolute Eosinophils Absolute Eos (Manual) Absolute Basophils Abs Basophils (Manual) Platelet Comment PT 13.7 INR 1.00 APTT 30.4 Sodium Potassium Chloride Carbon Dioxide Anion Gap BUN Creatinine Est GFR ( Amer) Est GFR (Non-Af Amer) Glucose Calcium Magnesium Total Bilirubin Direct Bilirubin Neonat Total Bilirubin Neonat Direct Bilirubin Neonat Indirect Bili AST ALT Alkaline Phosphatase Troponin I Total Protein Albumin 01/22/19 16:25 Patient's care was discussed with Dr. Pereyra who has requested a second troponin be drawn before accepting patient for admission at this facility. 01/22/19 17:13 Patient second troponin is slightly lower at 0.160. CTA has been ordered to evaluate for possible underlying pulmonary embolism load by Dr. Pereyra. Patient is already on the heparin infusion. She will be admitted to the [facility] for further care. I did discuss her cardiac evaluation today with Dr. Flores who will see her on consultation as well. Patient in agreement with plan of care and stable at time of admission. - Vital Signs Vital signs: Temp Pulse Resp BP Pulse Ox 98.0 F 98 23 H 125/66 95 01/22/19 12:25 01/22/19 12:25 01/22/19 16:01 01/22/19 16:01 01/22/19 16:01 - Laboratory Result Diagrams: 01/22/19 14:31 01/22/19 14:31 Laboratory results interpreted by me: 01/22/19 01/22/19 14:31 14:31 RBC 3.39 L Hgb 11.1 L Hct 32.0 L RDW 14.8 H Seg Neuts % (Manual) 92 H Lymphocytes % (Manual) 7 L Monocytes % (Manual) 1 L Abs Neuts (Manual) 8.6 H Sodium 133.3 L Potassium 5.1 H Glucose 113 H Calcium 10.4 H - EKG Interpretation by Me Additional EKG results interpreted by me: 01/22/19 15:56 Interpreted by myself 1539: Normal sinus rhythm, rate 97, normal axis, PVCs, no STEMI Critical Care Note - Critical Care Note Total time excluding time spent on procedures (mins): 40 Comments: Critical care time 40 exclusive from separate billable procedures for a patient requiring complex medical decision making, and high potential for clinical deterioration. Time spent obtaining history from patient or surrogate, discussions with consultants, development of treatment plan with patient or surrogate, evaluation of patient's response to treatment, examination of patient, ordering and performing treatments and interventions, ordering and review of laboratory studies, re-evaluation of patient's condition, ordering and review of radiographic studies and review of old charts Discharge - Discharge Clinical Impression: NSTEMI (non-ST elevated myocardial infarction), Shortness of breath Chest pain Qualifiers: Chest pain type: unspecified Qualified Code(s): R07.9 - Chest pain, unspecified Condition: Stable Disposition: ADMITTED INPATIENT Admitting Provider: Pereyra Unit Admitted: [facility] Referrals: ANGELA ROLON MD [ACTIVE STAFF] - Follow up as needed
[2019-01-22] MEDS: HEPARIN SODIUM,PORCINE/D5W 25,000 UNIT/250 ML RTUINJ IV PRN ×2 (16:46→23:35)
[2019-01-22 17:10] LABS: TROPONIN I 0.16 ng/mL
[2019-01-22] MEDS ORDERED: ACETAMINOPHEN 325 MG TABLET PO PRN (17:10)
[2019-01-22] MEDS ORDERED: MORPHINE SULFATE 10 MG/ML INJ IV PRN (17:17)
--- NOTE | 2019-01-22 17:20 | Progress Note ---
Provider Note Provider Note: pt seen and exam in er annd d/w pt and daughter and pt want dnr/dni d/w all consultnt
[2019-01-22 17:46] LABS: APPEARANCE,URINE CLOUDY; BILIRUBIN,URINE NEGATIVE (NEGATIVE); COLOR,URINE AMBER; GLUCOSE, URINE NEGATIVE (NEGATIVE); KETONES,URINE NEGATIVE (NEGATIVE); LEUKOCYTE ESTERASE,URINE LARGE (NEGATIVE); NITRITE,URINE POSITIVE (NEGATIVE); PROTEIN,URINE NEGATIVE (NEGATIVE); URINE SPECIFIC GRAVITY 1.006; UROBILINOGEN,URINE NEGATIVE mg/dL (<2.0)
[2019-01-22] MEDS ORDERED: HEPARIN SOD (PORCINE) 1,000 UNIT/ML 10 ML VIAL IV PRN (18:38)
[2019-01-22] MEDS: NORMAL SALINE 1000 ML 1,000 ML IV PRN (18:40)
--- NOTE | 2019-01-22 19:42 | EKG REPORT ---
SEVERITY:- OTHERWISE NORMAL ECG - SINUS RHYTHM VENTRICULAR PREMATURE COMPLEX : Confirmed by: Sixto Wheat MD 22-Jan-2019 19:41:54
--- NOTE | 2019-01-22 20:10 | RADIOLOGY REPORT (SQ) ---
CT CHEST ANGIOGRAPHY WITHOUT THEN WITH IV CONTRAST HISTORY: Shortness of breath. COMPARISON: 08/02/2018 TECHNIQUE: CT angiogram of the chest with IV contrast. 3-D MIP images were obtained in coronal and sagittal reconstructions. This exam was performed according to our departmental dose-optimization program, which includes automated exposure control, adjustment of the mA and/or kV according to patient size and/or use of iterative reconstruction technique. FINDINGS: No filling defects are identified in the pulmonary trunk, main left and right pulmonary arteries, or the segmental branches. No aortic aneurysm or dissection is seen. There is marked mediastinal and bilateral hilar adenopathy along with innumerable metastatic lesions throughout both lungs. Emphysematous changes are also present. No pleural effusions or pneumothorax. The heart size is normal without pericardial effusion. The visualized upper abdomen demonstrates no acute findings. No suspicious lytic or blastic lesions are identified. There is a hypodense nodule in the right thyroid lobe. IMPRESSION: 1. No acute pulmonary embolism. 2. Unchanged diffuse metastatic disease with mediastinal and hilar adenopathy.
--- NOTE | 2019-01-22 20:15 | PDOC CONSULTATION ---
Consultation Consult Date: 01/22/19 Attending physician:: GENE SMITH Consult reason:: Stage IV lung cancer here with shortness of breath, cough History of Present Illness Admission Date/PCP: 01/22/19 17:11 GENE SMITH MD Patient complains of: Severe diffuse pain, shortness of breath, cough History of Present Illness: SENAIT LEONARD is a 73 year old female with known history of stage IV lung cancer now on third line chemotherapy with Gemzar. Unfortunately, over the last 2 weeks patient has had extreme diffuse pain associated with her known rheumatoid arthritis, also severe cough and chest pain that is likely associated with her progression of disease of the lung cancer in the lung. Ultimately she became nearly bedridden and presented because of pain and weakness as well as cough and shortness of breath. Past Medical History Cardiac Medical History: Reports: Hypertension Denies: Coronary Artery Disease, Myocardial Infarction Pulmonary Medical History: Reports: Chronic Obstructive Pulmonary Disease (COPD) Denies: Asthma, Bronchitis, Pneumonia Neurological Medical History: Denies: Seizures Malignancy Medical History: Reports: Lung Cancer - Stage IV lung cancer with bilateral lung nodules as well as mediastinal lym Musculoskeltal Medical History: Reports: Arthritis - RA Psychiatric Medical History: Denies: Depression Hematology: Denies: Anemia Past Surgical History Past Surgical History: Reports: Other - Port placement, lobectomy Social History Information Source: Patient Smoking Status: Smoker,Current Status Unk Frequency of Alcohol Use: None Hx Recreational Drug Use: No Hx Prescription Drug Abuse: No - Advance Directive Resuscitation Status: Do Not Resuscitate Family History Family History: Reviewed & Not Pertinent Parental Family History Reviewed: Yes Children Family History Reviewed: Yes Sibling(s) Family History Reviewed.: Yes Medication/Allergy Home Medications: Citalopram Hydrobromide [Celexa 20 mg Tablet] 20 mg PO DAILY 08/03/18 Cyclobenzaprine HCl [Flexeril 10 mg Tablet] 10 mg PO Q8HP PRN 08/03/18 Multivit-Min/Iron/Folic/Lutein [Centrum Silver Women Tablet] 1 tab PO DAILY 08/03/18 Ondansetron [Zofran Odt] 8 mg PO Q6HP PRN 08/03/18 Prednisone 10 mg PO DAILY 08/03/18 Temazepam [Restoril] 30 mg PO QHS 08/03/18 Tiotropium Br/Olodaterol HCl [Stiolto Respimat Inhal [place]] 2 puff IH QAM 08/03/18 Hydrocodone/Chlorphen P-Stirex [Hydrocodone-Chlorpheniram Susp] 5 ml PO BIDP PRN 01/22/19 Rifampin [Rifadin 300 Mg Capsule] 600 mg PO DAILY 01/22/19 Allergies/Adverse Reactions: No Known Allergies Allergy (Verified 01/22/19 12:19) Review of Systems Constitutional: ABSENT: chills, fever(s), headache(s), weight gain, weight loss Eyes: ABSENT: visual disturbances Ears: ABSENT: hearing changes Cardiovascular: ABSENT: chest pain, dyspnea on exertion, edema, orthropnea, palpitations Respiratory: ABSENT: cough, hemoptysis Gastrointestinal: ABSENT: abdominal pain, constipation, diarrhea, hematemesis, hematochezia, nausea, vomiting Genitourinary: ABSENT: dysuria, hematuria Musculoskeletal: ABSENT: joint swelling Integumentary: ABSENT: rash, wounds Neurological: ABSENT: abnormal gait, abnormal speech, confusion, dizziness, focal weakness, syncope Psychiatric: ABSENT: anxiety, depression, homidical ideation, suicidal ideation Endocrine: ABSENT: cold intolerance, heat intolerance, polydipsia, polyuria Hematologic/Lymphatic: ABSENT: easy bleeding, easy bruising Physical Exam Vital Signs: Temp Pulse Resp BP Pulse Ox 98.0 F 98 31 H 131/63 H 93 01/22/19 12:25 01/22/19 12:25 01/22/19 19:01 01/22/19 19:01 01/22/19 19:01 Intake & Output 01/21/19 01/22/19 01/23/19 06:59 06:59 06:59 Weight 66.8 kg General appearance: PRESENT: no acute distress, well-developed, well-nourished Head exam: PRESENT: atraumatic, normocephalic Eye exam: PRESENT: conjunctiva pink, EOMI, PERRLA. ABSENT: scleral icterus Ear exam: PRESENT: normal external ear exam Mouth exam: PRESENT: moist, tongue midline Neck exam: ABSENT: carotid bruit, JVD, lymphadenopathy, thyromegaly Respiratory exam: PRESENT: clear to auscultation santi. ABSENT: rales, rhonchi, wheezes Cardiovascular exam: PRESENT: RRR. ABSENT: diastolic murmur, rubs, systolic murmur Pulses: PRESENT: normal dorsalis pedis pul Vascular exam: PRESENT: normal capillary refill GI/Abdominal exam: PRESENT: normal bowel sounds, soft. ABSENT: distended, guar ding, mass, organolmegaly, rebound, tenderness Rectal exam: PRESENT: deferred Extremities exam: PRESENT: full ROM. ABSENT: calf tenderness, clubbing, pedal edema Neurological exam: PRESENT: alert, awake, oriented to person, oriented to place, oriented to time, oriented to situation, CN II-XII grossly intact. ABSENT: motor sensory deficit Psychiatric exam: PRESENT: appropriate affect, normal mood. ABSENT: homicidal ideation, suicidal ideation Skin exam: PRESENT: dry, intact, warm. ABSENT: cyanosis, rash Results Laboratory Results: 01/22/19 14:31 01/22/19 14:31 01/22/19 01/22/19 01/22/19 14:31 14:31 17:18 WBC 9.3 RBC 3.39 L Hgb 11.1 L Hct 32.0 L MCV 95 MCH 32.7 MCHC 34.6 RDW 14.8 H Plt Count 347 Seg Neutrophils % Not Reportable Lymphocytes % Not Reportable Monocytes % Not Reportable Eosinophils % Not Reportable Basophils % Not Reportable Absolute Neutrophils Not Reportable Absolute Lymphocytes Not Reportable Absolute Monocytes Not Reportable Absolute Eosinophils Not Reportable Absolute Basophils Not Reportable Sodium 133.3 L Potassium 5.1 H Chloride 100 Carbon Dioxide 27 Anion Gap 6 BUN 12 Creatinine 0.91 Est GFR ( Amer) > 60 Est GFR (Non-Af Amer) > 60 Glucose 113 H Calcium 10.4 H Magnesium 2.1 Total Bilirubin 0.6 AST 32 ALT 23 Alkaline Phosphatase 104 Total Protein 7.0 Albumin 3.5 Urine Color ROSALIE Urine Appearance CLOUDY Urine pH 6.0 Ur Specific [place] 1.006 Urine Protein NEGATIVE Urine Glucose (UA) NEGATIVE Urine Ketones NEGATIVE Urine Blood NEGATIVE Urine Nitrite POSITIVE H Ur Leukocyte Esterase LARGE H Urine WBC (Auto) >182 Urine RBC (Auto) 1 01/22/19 01/22/19 01/22/19 14:31 16:27 16:27 Creatine Kinase 20 L CK-MB (CK-2) Troponin I 0.179 0.160 NT-Pro-B Natriuret Pep 307 01/22/19 16:27 Creatine Kinase CK-MB (CK-2) < 0.22 Troponin I Cancelled NT-Pro-B Natriuret Pep Impressions: Chest X-Ray 01/22/19 13:20 IMPRESSION: New right basilar airspace disease with or without pleural fluid. Status: Image reviewed by me Assessment & Plan - Diagnosis (1) Lung cancer Qualifiers: Laterality: left Lung location: upper lobe of lung Qualified Code(s): C34.12 - Malignant neoplasm of upper lobe, left bronchus or lung Is this a current diagnosis for this admission?: Yes Plan: Stage IV lung cancer, had a long discussion with patient, she already has decided on DNR/DNI. Do not believe further chemotherapy will help her. I will initiate hospice consult, I have contacted my meteorologist liaison Cammie from [facility] to see her tomorrow. We will start her on IV morphine today. (2) Rheumatoid arteritis Is this a current diagnosis for this admission?: Yes Plan: Severe rheumatoid arthritis with acute flare, will initiate patient on Solu- Medrol 60 mg IV and then give her 40 mg twice daily for the next 24 hours. Ultimately I think we can transition her to 40 mg oral prednisone dose. This will help her arthritis as well as give her comfort. - Time Time Spent: Greater than 70 Minutes - Inpatient Certification Based on my medical assessment, after consideration of the patient's comorbidities, presenting symptoms, or acuity I expect that the services needed warrant INPATIENT care.: Yes I certify that my determination is in accordance with my understanding of Medicare's requirements for reasonable and necessary INPATIENT services [42 CFR 412.3e].: Yes Medical Necessity: Need for Pain Control
[2019-01-22] MEDS: IPRATROPIUM/ALBUTEROL 0.5-2.5 MG/3 ML AMPUL NEB SCH (20:44)
[2019-01-22] MEDS: MORPHINE SULFATE 10 MG/ML INJ IV PRN (20:45)
[2019-01-22] MEDS ORDERED: METHYLPREDNISOLONE INJ 125 MG/2 ML SDV IV ONE (21:00)
[2019-01-22] MEDS ORDERED: CEFEPIME 2 GM/D5W RTU 2 GM/50 ML RTUPB IV SCH (22:00)
[2019-01-22] MEDS: CEFEPIME HCL 2 GM in DEXTROSE 5%-WATER 50 ML IV SCH (22:11)
[2019-01-22] MEDS ORDERED: CYCLOBENZAPRINE HCL 10 MG TABLET PO PRN (22:24)
[2019-01-22 22:59] LABS: CREATINE KINASE MB 0.23 ng/mL (<4.55); TROPONIN I 0.17 ng/mL
[2019-01-23 05:28] LABS: ABSOLUTE BASOPHILS # (AUTO) 0.1 10^3/uL (0.0-0.2); ABSOLUTE LYMPHOCYTES (AUTO) 0.8 10^3/uL (0.5-4.7); ABSOLUTE MONOCYTES (AUTO) 0.4 10^3/uL (0.1-1.4); ABSOLUTE NEUT (AUTO) 5.7 10^3/uL (1.7-8.2); BASOPHILS % (AUTO) 1.1 % (0-2); EOSINOPHILS % (AUTO) 0.3 % (0-6); HEMATOCRIT 27.5 % (36.0-47.0); HEMOGLOBIN 9.7 g/dL (12.0-15.5); LYMPHOCYTES % (AUTO) 11.1 % (13-45); MEAN CORPUSCULAR HEMOGLOBIN 33.2 pg (27.0-33.4); MEAN CORPUSCULAR HGB CONC 35.3 g/dL (32.0-36.0); MEAN CORPUSCULAR VOLUME 94 fl (80-97); MONOCYTES % (AUTO) 5.7 % (3-13); PLATELET COUNT 299 10^3/uL (150-450); RED BLOOD COUNT 2.93 10^6/uL (3.72-5.28); RED CELL DISTRIBUTION WIDTH 14.6 % (11.5-14.0); SEGMENTED NEUTROPHILS % (AUTO) 81.8 % (42-78); TOTAL CELLS COUNTED % (AUTO) 100 %
[2019-01-23 05:52] LABS: ANION GAP 6 (5-19); BLOOD UREA NITROGEN 12 mg/dL (7-20); CALCIUM 9.6 mg/dL (8.4-10.2); CARBON DIOXIDE 25 mmol/L (22-30); CHLORIDE 105 mmol/L (98-107); GLUCOSE 107 mg/dL (75-110); POTASSIUM 4.8 mmol/L (3.6-5.0); SODIUM 135.7 mmol/L (137-145)
[2019-01-23 06:03] LABS: CREATINE KINASE < 20 U/L (30-135)
[2019-01-23 06:05] LABS: NT PRO BNP 431 pg/mL (5-900); TROPONIN I 0.124 ng/mL
[2019-01-23] MEDS: PANTOPRAZOLE SODIUM 40 MG TABLET.DR PO SCH ×2 (06:08→23:26)
[2019-01-23 06:17] LABS: CREATINE KINASE MB < 0.22 ng/mL (<4.55)
[2019-01-23] MEDS: IPRATROPIUM/ALBUTEROL 0.5-2.5 MG/3 ML AMPUL NEB SCH ×4 (07:50→20:45)
--- NOTE | 2019-01-23 08:07 | EKG REPORT ---
SEVERITY:- NORMAL ECG - SINUS RHYTHM : Confirmed by: Sixto Wheat MD 23-Jan-2019 08:07:16
--- NOTE | 2019-01-23 08:18 | PDOC PROGRESS REPORT ---
Subjective Progress Note for:: 01/23/19 Subjective:: Patient states that she is very weak, has no energy, can't walk, and is short of breath. Her pain from the RA prevents her from walking. Reason For Visit: NON ST LA/CHEST PAIN/STAGE 4 LUNG CANCER/LATENT TB Physical Exam Vital Signs: Temp Pulse Resp BP Pulse Ox 98.3 F 87 21 H 95/57 L 97 01/23/19 07:00 01/23/19 07:50 01/23/19 07:50 01/23/19 06:11 01/23/19 07:50 Intake & Output 01/22/19 01/23/19 01/24/19 06:59 06:59 06:59 Intake Total 624 Output Total 650 Balance -26 Weight 66.8 kg General appearance: PRESENT: no acute distress, thin, well-developed Head exam: PRESENT: normocephalic Eye exam: PRESENT: EOMI Respiratory exam: PRESENT: unlabored Extremities exam: ABSENT: pedal edema Neurological exam: PRESENT: alert, awake Psychiatric exam: PRESENT: appropriate affect Skin exam: PRESENT: normal color Results Laboratory Results: 01/23/19 04:30 01/23/19 04:30 01/22/19 01/22/19 01/22/19 14:31 14:31 17:18 WBC 9.3 RBC 3.39 L Hgb 11.1 L Hct 32.0 L MCV 95 MCH 32.7 MCHC 34.6 RDW 14.8 H Plt Count 347 Seg Neutrophils % Not Reportable Lymphocytes % Not Reportable Monocytes % Not Reportable Eosinophils % Not Reportable Basophils % Not Reportable Absolute Neutrophils Not Reportable Absolute Lymphocytes Not Reportable Absolute Monocytes Not Reportable Absolute Eosinophils Not Reportable Absolute Basophils Not Reportable Sodium 133.3 L Potassium 5.1 H Chloride 100 Carbon Dioxide 27 Anion Gap 6 BUN 12 Creatinine 0.91 Est GFR ( Amer) > 60 Est GFR (Non-Af Amer) > 60 Glucose 113 H Calcium 10.4 H Magnesium 2.1 Total Bilirubin 0.6 AST 32 ALT 23 Alkaline Phosphatase 104 Total Protein 7.0 Albumin 3.5 Urine Color ROSALIE Urine Appearance CLOUDY Urine pH 6.0 Ur Specific [place] 1.006 Urine Protein NEGATIVE Urine Glucose (UA) NEGATIVE Urine Ketones NEGATIVE Urine Blood NEGATIVE Urine Nitrite POSITIVE H Ur Leukocyte Esterase LARGE H Urine WBC (Auto) >182 Urine RBC (Auto) 1 01/23/19 01/23/19 04:30 04:30 WBC 7.0 RBC 2.93 L Hgb 9.7 L Hct 27.5 L MCV 94 MCH 33.2 MCHC 35.3 RDW 14.6 H Plt Count 299 Seg Neutrophils % 81.8 H Lymphocytes % 11.1 L Monocytes % 5.7 Eosinophils % 0.3 Basophils % 1.1 Absolute Neutrophils 5.7 Absolute Lymphocytes 0.8 Absolute Monocytes 0.4 Absolute Eosinophils 0.0 Absolute Basophils 0.1 Sodium 135.7 L Potassium 4.8 Chloride 105 Carbon Dioxide 25 Anion Gap 6 BUN 12 Creatinine 0.76 Est GFR ( Amer) > 60 Est GFR (Non-Af Amer) > 60 Glucose 107 Calcium 9.6 Magnesium 2.1 Total Bilirubin AST ALT Alkaline Phosphatase Total Protein Albumin Urine Color Urine Appearance Urine pH Ur Specific [place] Urine Protein Urine Glucose (UA) Urine Ketones Urine Blood Urine Nitrite Ur Leukocyte Esterase Urine WBC (Auto) Urine RBC (Auto) 01/22/19 01/22/19 01/22/19 14:31 16:27 16:27 Creatine Kinase 20 L CK-MB (CK-2) Troponin I 0.179 0.160 NT-Pro-B Natriuret Pep 307 01/22/19 01/22/19 01/22/19 16:27 22:10 22:10 Creatine Kinase 23 L CK-MB (CK-2) < 0.22 0.23 Troponin I Cancelled 0.170 NT-Pro-B Natriuret Pep 01/23/19 01/23/19 04:30 04:30 Creatine Kinase < 20 L CK-MB (CK-2) < 0.22 Troponin I 0.124 NT-Pro-B Natriuret Pep 431 Impressions: Chest X-Ray 01/22/19 13:20 IMPRESSION: New right basilar airspace disease with or without pleural fluid. Chest/Abdomen CTA 01/22/19 17:06 IMPRESSION: 1. No acute pulmonary embolism. 2. Unchanged diffuse metastatic disease with mediastinal and hilar adenopathy. Assessment & Plan - Diagnosis (1) Lung cancer Qualifiers: Laterality: left Lung location: upper lobe of lung Qualified Code(s): C34.12 - Malignant neoplasm of upper lobe, left bronchus or lung Is this a current diagnosis for this admission?: Yes Plan: Cancer has been unresponsive to treatments. Patient to discuss Hospice services today with regional transfer liaison. (2) Rheumatoid arteritis Is this a current diagnosis for this admission?: Yes Plan: Causing chronic pain. Pain consult has been requested by Dr. Pereyra. (3) Shortness of breath Is this a current diagnosis for this admission?: Yes Plan: No evidence of PE on CT scans. Heparin will be stopped. Continue current therapy. Consider opiods for breathing as well. (4) Hyponatremia Is this a current diagnosis for this admission?: Yes Plan: Due to lung disease. Will try to increase Na in her diet.
[2019-01-23] MEDS: ASPIRIN 81 MG TABLET, CHEWABLE PO SCH (09:26)
[2019-01-23] MEDS: PREDNISONE 10 MG TABLET PO SCH (09:27)
[2019-01-23] MEDS: RIFAMPIN 300 MG CAPSULE PO SCH (09:27)
[2019-01-23] MEDS: CEFEPIME HCL 2 GM in DEXTROSE 5%-WATER 50 ML IV SCH ×2 (09:27→23:24)
[2019-01-23] MEDS: METHYLPREDNISOLONE INJ 40 MG/1 ML SDV IV SCH ×2 (09:27→23:24)
[2019-01-23] MEDS: CITALOPRAM HYDROBROMIDE 20 MG TABLET PO SCH (09:27)
[2019-01-23] MEDS: ENOXAPARIN SODIUM INJ 40 MG/0.4 ML DISP.SYRIN SUBCUT SCH (09:28)
--- NOTE | 2019-01-23 13:28 | PDOC PROGRESS REPORT ---
Subjective Progress Note for:: 01/23/19 Subjective:: Patient is feeling better Patient is denied any chest pain to than any shortness of the breath Patient's cardiac enzyme is coming down Patient CT angiogram is negative for pulmonary embolism Patient's otherwise still have ongoing chronic pain with the worsening the m alignancy Reason For Visit: NON ST MO/CHEST PAIN/STAGE 4 LUNG CANCER/LATENT TB Physical Exam Vital Signs: Temp Pulse Resp BP Pulse Ox 98.3 F 87 17 95/57 L 94 01/23/19 07:00 01/23/19 07:50 01/23/19 11:00 01/23/19 06:11 01/23/19 11:00 Intake & Output 01/22/19 01/23/19 01/24/19 06:59 06:59 06:59 Intake Total 624 50 Output Total 650 Balance -26 50 Weight 66.8 kg General appearance: PRESENT: no acute distress, well-developed, well-nourished Head exam: PRESENT: atraumatic, normocephalic Eye exam: PRESENT: conjunctiva pink, EOMI, PERRLA. ABSENT: scleral icterus Ear exam: PRESENT: normal external ear exam Mouth exam: PRESENT: moist, tongue midline Neck exam: PRESENT: full ROM. ABSENT: carotid bruit, JVD, lymphadenopathy, thyromegaly Respiratory exam: PRESENT: clear to auscultation santi Cardiovascular exam: PRESENT: RRR. ABSENT: diastolic murmur, rubs, systolic murmur Vascular exam: PRESENT: normal capillary refill GI/Abdominal exam: PRESENT: normal bowel sounds, soft. ABSENT: distended, guarding, mass, organolmegaly, rebound, tenderness Rectal exam: PRESENT: deferred Extremities exam: ABSENT: pedal edema Neurological exam: PRESENT: alert, awake, oriented to person, oriented to place, oriented to time, oriented to situation, CN II-XII grossly intact. ABSENT: motor sensory deficit Psychiatric exam: PRESENT: appropriate affect, normal mood. ABSENT: homicidal ideation, suicidal ideation Skin exam: PRESENT: dry, intact, warm. ABSENT: cyanosis, rash Results Laboratory Results: 01/23/19 04:30 01/23/19 04:30 01/22/19 01/22/19 01/22/19 14:31 14:31 17:18 WBC 9.3 RBC 3.39 L Hgb 11.1 L Hct 32.0 L MCV 95 MCH 32.7 MCHC 34.6 RDW 14.8 H Plt Count 347 Seg Neutrophils % Not Reportable Lymphocytes % Not Reportable Monocytes % Not Reportable Eosinophils % Not Reportable Basophils % Not Reportable Absolute Neutrophils Not Reportable Absolute Lymphocytes Not Reportable Absolute Monocytes Not Reportable Absolute Eosinophils Not Reportable Absolute Basophils Not Reportable Sodium 133.3 L Potassium 5.1 H Chloride 100 Carbon Dioxide 27 Anion Gap 6 BUN 12 Creatinine 0.91 Est GFR ( Amer) > 60 Est GFR (Non-Af Amer) > 60 Glucose 113 H Calcium 10.4 H Magnesium 2.1 Total Bilirubin 0.6 AST 32 ALT 23 Alkaline Phosphatase 104 Total Protein 7.0 Albumin 3.5 Urine Color ROSALIE Urine Appearance CLOUDY Urine pH 6.0 Ur Specific [place] 1.006 Urine Protein NEGATIVE Urine Glucose (UA) NEGATIVE Urine Ketones NEGATIVE Urine Blood NEGATIVE Urine Nitrite POSITIVE H Ur Leukocyte Esterase LARGE H Urine WBC (Auto) >182 Urine RBC (Auto) 1 01/23/19 01/23/19 04:30 04:30 WBC 7.0 RBC 2.93 L Hgb 9.7 L Hct 27.5 L MCV 94 MCH 33.2 MCHC 35.3 RDW 14.6 H Plt Count 299 Seg Neutrophils % 81.8 H Lymphocytes % 11.1 L Monocytes % 5.7 Eosinophils % 0.3 Basophils % 1.1 Absolute Neutrophils 5.7 Absolute Lymphocytes 0.8 Absolute Monocytes 0.4 Absolute Eosinophils 0.0 Absolute Basophils 0.1 Sodium 135.7 L Potassium 4.8 Chloride 105 Carbon Dioxide 25 Anion Gap 6 BUN 12 Creatinine 0.76 Est GFR ( Amer) > 60 Est GFR (Non-Af Amer) > 60 Glucose 107 Calcium 9.6 Magnesium 2.1 Total Bilirubin AST ALT Alkaline Phosphatase Total Protein Albumin Urine Color Urine Appearance Urine pH Ur Specific [place] Urine Protein Urine Glucose (UA) Urine Ketones Urine Blood Urine Nitrite Ur Leukocyte Esterase Urine WBC (Auto) Urine RBC (Auto) 01/22/19 01/22/19 01/22/19 14:31 16:27 16:27 Creatine Kinase 20 L CK-MB (CK-2) Troponin I 0.179 0.160 NT-Pro-B Natriuret Pep 307 01/22/19 01/22/19 01/22/19 16:27 22:10 22:10 Creatine Kinase 23 L CK-MB (CK-2) < 0.22 0.23 Troponin I Cancelled 0.170 NT-Pro-B Natriuret Pep 01/23/19 01/23/19 04:30 04:30 Creatine Kinase < 20 L CK-MB (CK-2) < 0.22 Troponin I 0.124 NT-Pro-B Natriuret Pep 431 Impressions: Chest X-Ray 01/22/19 13:20 IMPRESSION: New right basilar airspace disease with or without pleural fluid. Chest/Abdomen CTA 01/22/19 17:06 IMPRESSION: 1. No acute pulmonary embolism. 2. Unchanged diffuse metastatic disease with mediastinal and hilar adenopathy. Assessment & Plan - Diagnosis (1) Chest pain Qualifiers: Chest pain type: unspecified Qualified Code(s): R07.9 - Chest pain, unspecified Is this a current diagnosis for this admission?: Yes Plan: Multifactorial with ongoing chronic pain syndrome with rheumatoid arthritis with the worsening the malignancy with some elevated troponin Continues the pain medications which currently helping the patient will wait for the pain management (2) NSTEMI (non-ST elevated myocardial infarction) Is this a current diagnosis for this admission?: Yes Plan: Not sure about the non-ST MO with the EKG is stable May be a troponin leak Patient's not a candidate for any cardiac interventions due to the stage IV lung cancer as per discussed with the oncology And as per discussed with the cardiology Medical management We will discontinues to heparin drips (3) Rheumatoid arteritis Is this a current diagnosis for this admission?: Yes Plan: Patient have a latent TB currently on no medications unable to take any infusion for rheumatoid arthritis due to the latent TB and currently see the infectious disease for that (4) Anxiety disorder Qualifiers: Anxiety disorder type: generalized anxiety disorder Qualified Code(s): F41.1 - Generalized anxiety disorder Is this a current diagnosis for this admission?: Yes Plan: Currently all stable (5) Chronic obstructive pulmonary disease Qualifiers: COPD type: unspecified COPD Qualified Code(s): J44.9 - Chronic obstructive pulmonary disease, unspecified Is this a current diagnosis for this admission?: Yes Plan: Treatments (6) Lung cancer Qualifiers: Laterality: left Lung location: upper lobe of lung Qualified Code(s): C34.12 - Malignant neoplasm of upper lobe, left bronchus or lung Is this a current diagnosis for this admission?: Yes Plan: Patient for lung cancers with the progression of the disease patient is failed the immunotherapy in the first 2 lines of chemotherapy (7) Urinary tract infection Qualifiers: Urinary tract infection type: site unspecified Is this a current diagnosis for this admission?: Yes Plan: IV antibiotics (8) Chronic pain syndrome Is this a current diagnosis for this admission?: Yes Plan: The pain management (9) Pneumonia Is this a current diagnosis for this admission?: Yes Plan: The patient on IV antibiotic get the sputum culture and consider Dr. Orr which is patient will see outpatient (10) Shortness of breath Is this a current diagnosis for this admission?: Yes Plan: Multifactorial due to the worsening the malignancy - Time Time Spent with patient: 15-24 minutes Medications reviewed and adjusted accordingly: Yes Anticipated discharge: Hospice Within: Other - Plan Summary Plan Summary: continue current medication
--- NOTE | 2019-01-23 16:13 | PDOC H&P ---
History of Present Illness Admission Date/PCP: 01/22/19 17:11 GENE SMITH MD Patient complains of: Chest pain History of Present Illness: SENAIT LEONARD is a 73 year old female This 73-year-old female with a stage IV lung cancer recent CT scan suggestive of worsening the malignancy with chemotherapy and immunotherapy with a history of the hypertension's history of the COPD emphysema and a history of the rheumatoid arthritis with the recent seen by infectious disease for the inconclusive TB test currently put on a TB medications Patient's came to the emergency department with the complaint of chest pain describing on the right side all over and also very weak unable to move from the bed In the emergency departments workup with the patient's cardiac enzyme is elevated with 0.179 with the non-ST [place] range Patient underwent for the CT angiogram which is negative for pulmonary embolism Patient when I saw in the emergency department complaining of generalized weakness and very extensive discussions with the patient and the daughter in the ER patient not feeling well. Several months As per discussed with the oncology recent CT scan so the progression of the patient's malignancy with a stage IV lung cancer which patients fails to the chemotherapy and immunotherapy currently getting the third line chemotherapy 3:01 dose of the cycle patient's disease is not getting better Patient at this point not a candidate for any cardiac interventions due to the ongoing stage IV lung cancers with rheumatoid with a questionable inconclusive TB Patients at this point decided to admit in the hospital for medical management consult the cardiology discussed with the cardiology and consult the oncology Past Medical History Cardiac Medical History: Reports: Hypertension Denies: Coronary Artery Disease, Myocardial Infarction Pulmonary Medical History: Reports: Chronic Obstructive Pulmonary Disease (COPD) Denies: Asthma, Bronchitis, Pneumonia Neurological Medical History: Denies: Seizures Malignancy Medical History: Reports: Lung Cancer - Stage IV lung cancer with bilateral lung nodules as well as mediastinal lym Musculoskeltal Medical History: Reports: Arthritis - RA Psychiatric Medical History: Denies: Depression Hematology: Denies: Anemia Past Surgical History Past Surgical History: Reports: Other - Port placement, lobectomy Social History Information Source: Patient Smoking Status: Former Smoker Frequency of Alcohol Use: None Hx Recreational Drug Use: No Hx Prescription Drug Abuse: No - Advance Directive Resuscitation Status: Do Not Resuscitate Family History Family History: Reviewed & Not Pertinent Parental Family History Reviewed: Yes Children Family History Reviewed: Yes Sibling(s) Family History Reviewed.: Yes Medication/Allergy Home Medications: Citalopram Hydrobromide [Celexa 20 mg Tablet] 20 mg PO DAILY 08/03/18 Cyclobenzaprine HCl [Flexeril 10 mg Tablet] 10 mg PO Q8HP PRN 08/03/18 Multivit-Min/Iron/Folic/Lutein [Centrum Silver Women Tablet] 1 tab PO DAILY 08/03/18 Ondansetron [Zofran Odt] 8 mg PO Q6HP PRN 08/03/18 Prednisone 10 mg PO DAILY 08/03/18 Temazepam [Restoril] 30 mg PO QHS 08/03/18 Tiotropium Br/Olodaterol HCl [Stiolto Respimat Inhal [place]] 2 puff IH QAM 08/03/18 Hydrocodone/Chlorphen P-Stirex [Hydrocodone-Chlorpheniram Susp] 5 ml PO BIDP PRN 01/22/19 Rifampin [Rifadin 300 Mg Capsule] 600 mg PO DAILY 01/22/19 Allergies/Adverse Reactions: No Known Allergies Allergy (Verified 01/22/19 12:19) Review of Systems Constitutional: PRESENT: fatigue, weakness. ABSENT: chills, fever(s), headache(s), weight gain, weight loss Eyes: ABSENT: visual disturbances Ears: ABSENT: hearing changes Cardiovascular: PRESENT: chest pain, dyspnea on exertion. ABSENT: edema, orthropnea, palpitations Respiratory: PRESENT: cough, dyspnea. ABSENT: hemoptysis Gastrointestinal: ABSENT: abdominal pain, constipation, diarrhea, hematemesis, hematochezia, nausea, vomiting Genitourinary: ABSENT: dysuria, hematuria Musculoskeletal: ABSENT: joint swelling Integumentary: ABSENT: rash, wounds Neurological: ABSENT: abnormal gait, abnormal speech, confusion, dizziness, focal weakness, syncope Psychiatric: ABSENT: anxiety, depression, homidical ideation, suicidal ideation Endocrine: ABSENT: cold intolerance, heat intolerance, menstrual abnormalities, polydipsia, polyuria Hematologic/Lymphatic: ABSENT: easy bleeding, easy bruising, lymphadenopathy Physical Exam Vital Signs: Temp Pulse Resp BP Pulse Ox 98.3 F 87 17 95/57 L 94 01/23/19 07:00 01/23/19 07:50 01/23/19 11:00 01/23/19 06:11 01/23/19 11:00 Intake & Output 01/22/19 01/23/19 01/24/19 06:59 06:59 06:59 Intake Total 624 50 Output Total 650 Balance -26 50 Weight 66.8 kg General appearance: PRESENT: no acute distress Head exam: PRESENT: atraumatic, normocephalic Eye exam: PRESENT: conjunctiva pink, EOMI, PERRLA. ABSENT: scleral icterus Ear exam: PRESENT: normal external ear exam Mouth exam: PRESENT: moist, tongue midline Neck exam: PRESENT: full ROM. ABSENT: carotid bruit, JVD, lymphadenopathy, thyromegaly Respiratory exam: PRESENT: decreased breath sounds Cardiovascular exam: PRESENT: RRR. ABSENT: diastolic murmur, rubs, systolic murmur Vascular exam: PRESENT: normal capillary refill GI/Abdominal exam: PRESENT: normal bowel sounds, soft. ABSENT: distended, guarding, mass, organolmegaly, rebound, tenderness Rectal exam: PRESENT: deferred Extremities exam: ABSENT: pedal edema Neurological exam: PRESENT: alert, awake, oriented to person, oriented to place, oriented to time, oriented to situation, CN II-XII grossly intact. ABSENT: motor sensory deficit Psychiatric exam: PRESENT: appropriate affect, normal mood. ABSENT: homicidal ideation, suicidal ideation Skin exam: PRESENT: dry, intact, warm. ABSENT: cyanosis, rash Results Laboratory Results: 01/23/19 04:30 01/23/19 04:30 01/22/19 01/22/19 01/22/19 14:31 14:31 17:18 WBC 9.3 RBC 3.39 L Hgb 11.1 L Hct 32.0 L MCV 95 MCH 32.7 MCHC 34.6 RDW 14.8 H Plt Count 347 Seg Neutrophils % Not Reportable Lymphocytes % Not Reportable Monocytes % Not Reportable Eosinophils % Not Reportable Basophils % Not Reportable Absolute Neutrophils Not Reportable Absolute Lymphocytes Not Reportable Absolute Monocytes Not Reportable Absolute Eosinophils Not Reportable Absolute Basophils Not Reportable Sodium 133.3 L Potassium 5.1 H Chloride 100 Carbon Dioxide 27 Anion Gap 6 BUN 12 Creatinine 0.91 Est GFR ( Amer) > 60 Est GFR (Non-Af Amer) > 60 Glucose 113 H Calcium 10.4 H Magnesium 2.1 Total Bilirubin 0.6 AST 32 ALT 23 Alkaline Phosphatase 104 Total Protein 7.0 Albumin 3.5 Urine Color ROSALIE Urine Appearance CLOUDY Urine pH 6.0 Ur Specific [place] 1.006 Urine Protein NEGATIVE Urine Glucose (UA) NEGATIVE Urine Ketones NEGATIVE Urine Blood NEGATIVE Urine Nitrite POSITIVE H Ur Leukocyte Esterase LARGE H Urine WBC (Auto) >182 Urine RBC (Auto) 1 01/23/19 01/23/19 04:30 04:30 WBC 7.0 RBC 2.93 L Hgb 9.7 L Hct 27.5 L MCV 94 MCH 33.2 MCHC 35.3 RDW 14.6 H Plt Count 299 Seg Neutrophils % 81.8 H Lymphocytes % 11.1 L Monocytes % 5.7 Eosinophils % 0.3 Basophils % 1.1 Absolute Neutrophils 5.7 Absolute Lymphocytes 0.8 Absolute Monocytes 0.4 Absolute Eosinophils 0.0 Absolute Basophils 0.1 Sodium 135.7 L Potassium 4.8 Chloride 105 Carbon Dioxide 25 Anion Gap 6 BUN 12 Creatinine 0.76 Est GFR ( Amer) > 60 Est GFR (Non-Af Amer) > 60 Glucose 107 Calcium 9.6 Magnesium 2.1 Total Bilirubin AST ALT Alkaline Phosphatase Total Protein Albumin Urine Color Urine Appearance Urine pH Ur Specific [place] Urine Protein Urine Glucose (UA) Urine Ketones Urine Blood Urine Nitrite Ur Leukocyte Esterase Urine WBC (Auto) Urine RBC (Auto) 01/22/19 01/22/19 01/22/19 14:31 16:27 16:27 Creatine Kinase 20 L CK-MB (CK-2) Troponin I 0.179 0.160 NT-Pro-B Natriuret Pep 307 01/22/19 01/22/19 01/22/19 16:27 22:10 22:10 Creatine Kinase 23 L CK-MB (CK-2) < 0.22 0.23 Troponin I Cancelled 0.170 NT-Pro-B Natriuret Pep 01/23/19 01/23/19 04:30 04:30 Creatine Kinase < 20 L CK-MB (CK-2) < 0.22 Troponin I 0.124 NT-Pro-B Natriuret Pep 431 Impressions: Chest X-Ray 01/22/19 13:20 IMPRESSION: New right basilar airspace disease with or without pleural fluid. Chest/Abdomen CTA 01/22/19 17:06 IMPRESSION: 1. No acute pulmonary embolism. 2. Unchanged diffuse metastatic disease with mediastinal and hilar adenopathy. Assessment & Plan - Diagnosis (1) Chest pain Qualifiers: Chest pain type: unspecified Qualified Code(s): R07.9 - Chest pain, unspecified Is this a current diagnosis for this admission?: Yes Plan: Admit the patient in IMCU Consult the cardiology Multiple etiology including the ongoing worsening the lung malignancy in the chest significant rheumatoid arthritis and chronic pain syndromes could be underlying coronary artery disease (2) NSTEMI (non-ST elevated myocardial infarction) Is this a current diagnosis for this admission?: Yes Plan: The dressage judge to further evaluations Patient is not a candidate for any cardiac interventions due to the multiple o ther comorbidity currently on a heparin drip and aspirin (3) Rheumatoid arteritis Is this a current diagnosis for this admission?: Yes Plan: Is currently see a sales development representative Not a candidate for any infusions with inconclusive TB test (4) Anxiety disorder Qualifiers: Anxiety disorder type: generalized anxiety disorder Qualified Code(s): F41.1 - Generalized anxiety disorder Is this a current diagnosis for this admission?: Yes Plan: Currently all stable (5) Chronic obstructive pulmonary disease Qualifiers: COPD type: unspecified COPD Qualified Code(s): J44.9 - Chronic obstructive pulmonary disease, unspecified Is this a current diagnosis for this admission?: Yes Plan: continue to nebulizer treatments (6) Lung cancer Qualifiers: Laterality: left Lung location: upper lobe of lung Qualified Code(s): C34.12 - Malignant neoplasm of upper lobe, left bronchus or lung Is this a current diagnosis for this admission?: Yes Plan: Consult oncology (7) Urinary tract infection Qualifiers: Urinary tract infection type: site unspecified Is this a current diagnosis for this admission?: Yes Plan: Start on antibiotics (8) Chronic pain syndrome Is this a current diagnosis for this admission?: Yes Plan: Consult the pain management (9) Pneumonia Is this a current diagnosis for this admission?: Yes Plan: Get the sputum cultures current start on antibiotic (10) Shortness of breath Is this a current diagnosis for this admission?: Yes Plan: Multifactorial due to the worsening the malignancy - Time Time Spent: 50 to 70 Minutes Medications reviewed and adjusted accordingly: Yes Anticipated discharge: Home Within: Other - Inpatient Certification Based on my medical assessment, after consideration of the patient's comorbidities, presenting symptoms, or acuity I expect that the services needed warrant INPATIENT care.: Yes - Heart I certify that my determination is in accordance with my understanding of Medicare's requirements for reasonable and necessary INPATIENT services [42 CFR 412.3e].: Yes Medical Necessity: Need Close Monitoring Due to Risk of Patient Decompensation, Need For IV Fluids, Need for IV Antibiotics Post Hospital Care: D/C [place] Gatherer Documentation - Plan Summary Plan Summary: Admitting IMCU Discussed with the patient and the daughter in the ER The patient is a DNR/DNI Discussed with the other coordinate supply chain consultant
[2019-01-23] MEDS: TEMAZEPAM 15 MG CAPSULE PO SCH (23:24)
[2019-01-23] MEDS: NORMAL SALINE 1000 ML 1,000 ML IV PRN (23:35)
[2019-01-24] MEDS: PANTOPRAZOLE SODIUM 40 MG TABLET.DR PO SCH ×2 (06:36→18:47)
[2019-01-24 07:35] LABS: HEMATOCRIT 26.8 % (36.0-47.0); HEMOGLOBIN 9.2 g/dL (12.0-15.5); MEAN CORPUSCULAR HEMOGLOBIN 32.8 pg (27.0-33.4); MEAN CORPUSCULAR HGB CONC 34.5 g/dL (32.0-36.0); MEAN CORPUSCULAR VOLUME 95 fl (80-97); PLATELET COUNT 302 10^3/uL (150-450); RED BLOOD COUNT 2.81 10^6/uL (3.72-5.28); RED CELL DISTRIBUTION WIDTH 14.8 % (11.5-14.0); WHITE BLOOD COUNT 7.4 10^3/uL (4.0-10.5)
[2019-01-24 07:47] LABS: APPEARANCE,URINE CLEAR; BILIRUBIN,URINE NEGATIVE (NEGATIVE); COLOR,URINE YELLOW; GLUCOSE, URINE NEGATIVE (NEGATIVE); KETONES,URINE NEGATIVE (NEGATIVE); LEUKOCYTE ESTERASE,URINE TRACE (NEGATIVE); NITRITE,URINE NEGATIVE (NEGATIVE); PROTEIN,URINE NEGATIVE (NEGATIVE); URINE SPECIFIC GRAVITY 1.008; UROBILINOGEN,URINE NEGATIVE mg/dL (<2.0)
[2019-01-24 07:53] LABS: ANION GAP 8 (5-19); BLOOD UREA NITROGEN 12 mg/dL (7-20); CALCIUM 9.3 mg/dL (8.4-10.2); CARBON DIOXIDE 25 mmol/L (22-30); CHLORIDE 105 mmol/L (98-107); GLUCOSE 108 mg/dL (75-110); POTASSIUM 4.6 mmol/L (3.6-5.0); SODIUM 137.6 mmol/L (137-145)
[2019-01-24] MEDS ORDERED: PHENOL/SODIUM PHENOLATE 100 SPRAY/177 ML BOTTLE PO PRN (08:28)
--- NOTE | 2019-01-24 08:59 | PDOC PROGRESS REPORT ---
Subjective Progress Note for:: 01/24/19 Subjective:: Patient is currently doing well Denied any chest pain today any shortness of the breath No chest pain Reason For Visit: NON ST CO/CHEST PAIN/STAGE 4 LUNG CANCER/LATENT TB Physical Exam Vital Signs: Temp Pulse Resp BP Pulse Ox 98.2 F 87 16 123/59 L 96 01/24/19 07:31 01/24/19 07:31 01/24/19 07:31 01/24/19 07:31 01/24/19 07:31 Intake & Output 01/23/19 01/24/19 01/25/19 06:59 06:59 06:59 Intake Total 624 1946 Output Total 650 - 194 Weight 66.8 kg 66.8 kg General appearance: PRESENT: no acute distress, well-developed, well-nourished Head exam: PRESENT: atraumatic, normocephalic Eye exam: PRESENT: conjunctiva pink, EOMI, PERRLA. ABSENT: scleral icterus Ear exam: PRESENT: normal external ear exam Mouth exam: PRESENT: moist, tongue midline Neck exam: PRESENT: full ROM. ABSENT: carotid bruit, JVD, lymphadenopathy, thyromegaly Respiratory exam: PRESENT: clear to auscultation santi Cardiovascular exam: PRESENT: RRR. ABSENT: diastolic murmur, rubs, systolic murmur Vascular exam: PRESENT: normal capillary refill GI/Abdominal exam: PRESENT: normal bowel sounds, soft. ABSENT: distended, guarding, mass, organolmegaly, rebound, tenderness Rectal exam: PRESENT: deferred Musculoskeletal exam: PRESENT: ambulatory Neurological exam: PRESENT: alert, awake, oriented to person, oriented to place, oriented to time, oriented to situation, CN II-XII grossly intact. ABSENT: motor sensory deficit Psychiatric exam: PRESENT: appropriate affect, normal mood. ABSENT: homicidal ideation, suicidal ideation Skin exam: PRESENT: dry, intact, warm. ABSENT: cyanosis, rash Results Laboratory Results: 01/24/19 06:50 01/24/19 06:50 01/24/19 01/24/19 01/24/19 05:51 06:50 06:50 WBC 7.4 RBC 2.81 L Hgb 9.2 L Hct 26.8 L MCV 95 MCH 32.8 MCHC 34.5 RDW 14.8 H Plt Count 302 Sodium Potassium Chloride Carbon Dioxide Anion Gap BUN Creatinine Est GFR ( Amer) Est GFR (Non-Af Amer) Glucose Calcium Magnesium Urine Color YELLOW Urine Appearance CLEAR Urine pH 6.0 Ur Specific [place] 1.008 Urine Protein NEGATIVE Urine Glucose (UA) NEGATIVE Urine Ketones NEGATIVE Urine Blood NEGATIVE Urine Nitrite NEGATIVE Ur Leukocyte Esterase TRACE H Urine WBC (Auto) 9 Urine RBC (Auto) 2 Stool Occult Blood NEGATIVE 01/24/19 06:50 WBC RBC Hgb Hct MCV MCH MCHC RDW Plt Count Sodium 137.6 Potassium 4.6 Chloride 105 Carbon Dioxide 25 Anion Gap 8 BUN 12 Creatinine 0.77 Est GFR ( Amer) > 60 Est GFR (Non-Af Amer) > 60 Glucose 108 Calcium 9.3 Magnesium 2.1 Urine Color Urine Appearance Urine pH Ur Specific [place] Urine Protein Urine Glucose (UA) Urine Ketones Urine Blood Urine Nitrite Ur Leukocyte Esterase Urine WBC (Auto) Urine RBC (Auto) Stool Occult Blood 01/22/19 17:18 Clean Catch Midstream Urine Culture - Final Escherichia Coli 01/22/19 01/22/19 01/22/19 14:31 16:27 16:27 Creatine Kinase 20 L CK-MB (CK-2) Troponin I 0.179 0.160 NT-Pro-B Natriuret Pep 307 01/22/19 01/22/19 01/22/19 16:27 22:10 22:10 Creatine Kinase 23 L CK-MB (CK-2) < 0.22 0.23 Troponin I Cancelled 0.170 NT-Pro-B Natriuret Pep 01/23/19 01/23/19 01/24/19 04:30 04:30 06:50 Creatine Kinase < 20 L CK-MB (CK-2) < 0.22 Troponin I 0.124 NT-Pro-B Natriuret Pep 431 1110 H Impressions: Chest X-Ray 01/22/19 13:20 IMPRESSION: New right basilar airspace disease with or without pleural fluid. Chest/Abdomen CTA 01/22/19 17:06 IMPRESSION: 1. No acute pulmonary embolism. 2. Unchanged diffuse metastatic disease with mediastinal and hilar adenopathy. Assessment & Plan - Diagnosis (1) Chest pain Qualifiers: Chest pain type: unspecified Qualified Code(s): R07.9 - Chest pain, unspecified Is this a current diagnosis for this admission?: Yes (2) NSTEMI (non-ST elevated myocardial infarction) Is this a current diagnosis for this admission?: Yes (3) Rheumatoid arteritis Is this a current diagnosis for this admission?: Yes (4) Anxiety disorder Qualifiers: Anxiety disorder type: generalized anxiety disorder Qualified Code(s): F41.1 - Generalized anxiety disorder Is this a current diagnosis for this admission?: Yes (5) Chronic obstructive pulmonary disease Qualifiers: COPD type: unspecified COPD Qualified Code(s): J44.9 - Chronic obstructive pulmonary disease, unspecified Is this a current diagnosis for this admission?: Yes (6) Lung cancer Qualifiers: Laterality: left Lung location: upper lobe of lung Qualified Code(s): C34.12 - Malignant neoplasm of upper lobe, left bronchus or lung Is this a current diagnosis for this admission?: Yes (7) Urinary tract infection Qualifiers: Urinary tract infection type: site unspecified Is this a current diagnosis for this admission?: Yes (8) Chronic pain syndrome Is this a current diagnosis for this admission?: Yes (9) Pneumonia Is this a current diagnosis for this admission?: Yes (10) Shortness of breath Is this a current diagnosis for this admission?: Yes - Plan Summary Plan Summary: IV antibiotic
[2019-01-24] MEDS: IPRATROPIUM/ALBUTEROL 0.5-2.5 MG/3 ML AMPUL NEB SCH ×4 (09:03→20:33)
--- NOTE | 2019-01-24 09:14 | PDOC PROGRESS REPORT ---
Subjective Progress Note for:: 01/24/19 Subjective:: Patient seems symptomatically better, did get up a little bit yesterday seems to be eating a little bit today Reason For Visit: NON ST CA/CHEST PAIN/STAGE 4 LUNG CANCER/LATENT TB Physical Exam Vital Signs: Temp Pulse Resp BP Pulse Ox 98.2 F 85 14 123/59 L 100 01/24/19 07:31 01/24/19 09:03 01/24/19 09:03 01/24/19 07:31 01/24/19 09:03 Intake & Output 01/23/19 01/24/19 01/25/19 06:59 06:59 06:59 Intake Total 624 1946 Output Total 650 - 194 Weight 66.8 kg 66.8 kg General appearance: PRESENT: no acute distress, well-developed, well-nourished Head exam: PRESENT: atraumatic, normocephalic Eye exam: PRESENT: conjunctiva pink, EOMI, PERRLA. ABSENT: scleral icterus Ear exam: PRESENT: normal external ear exam Mouth exam: PRESENT: moist, tongue midline Neck exam: ABSENT: carotid bruit, JVD, lymphadenopathy, thyromegaly Respiratory exam: PRESENT: clear to auscultation santi. ABSENT: rales, rhonchi, wheezes Cardiovascular exam: PRESENT: RRR. ABSENT: diastolic murmur, rubs, systolic murmur Pulses: PRESENT: normal [place] pedis pul Vascular exam: PRESENT: normal capillary refill GI/Abdominal exam: PRESENT: normal bowel sounds, soft. ABSENT: distended, guarding, mass, organolmegaly, rebound, tenderness Rectal exam: PRESENT: deferred Extremities exam: PRESENT: full ROM. ABSENT: calf tenderness, clubbing, pedal edema Neurological exam: PRESENT: alert, awake, oriented to person, oriented to place, oriented to time, oriented to situation, CN II-XII grossly intact. ABSENT: motor sensory deficit Psychiatric exam: PRESENT: appropriate affect, normal mood. ABSENT: homicidal ideation, suicidal ideation Skin exam: PRESENT: dry, intact, warm. ABSENT: cyanosis, rash Results Laboratory Results: 01/24/19 06:50 01/24/19 06:50 01/24/19 01/24/19 01/24/19 05:51 06:50 06:50 WBC 7.4 RBC 2.81 L Hgb 9.2 L Hct 26.8 L MCV 95 MCH 32.8 MCHC 34.5 RDW 14.8 H Plt Count 302 Sodium Potassium Chloride Carbon Dioxide Anion Gap BUN Creatinine Est GFR ( Amer) Est GFR (Non-Af Amer) Glucose Calcium Magnesium Urine Color YELLOW Urine Appearance CLEAR Urine pH 6.0 Ur Specific [place] 1.008 Urine Protein NEGATIVE Urine Glucose (UA) NEGATIVE Urine Ketones NEGATIVE Urine Blood NEGATIVE Urine Nitrite NEGATIVE Ur Leukocyte Esterase TRACE H Urine WBC (Auto) 9 Urine RBC (Auto) 2 Stool Occult Blood NEGATIVE 01/24/19 06:50 WBC RBC Hgb Hct MCV MCH MCHC RDW Plt Count Sodium 137.6 Potassium 4.6 Chloride 105 Carbon Dioxide 25 Anion Gap 8 BUN 12 Creatinine 0.77 Est GFR ( Amer) > 60 Est GFR (Non-Af Amer) > 60 Glucose 108 Calcium 9.3 Magnesium 2.1 Urine Color Urine Appearance Urine pH Ur Specific [place] Urine Protein Urine Glucose (UA) Urine Ketones Urine Blood Urine Nitrite Ur Leukocyte Esterase Urine WBC (Auto) Urine RBC (Auto) Stool Occult Blood 01/22/19 17:18 Clean Catch Midstream Urine Culture - Final Escherichia Coli 01/22/19 01/22/19 01/22/19 14:31 16:27 16:27 Creatine Kinase 20 L CK-MB (CK-2) Troponin I 0.179 0.160 NT-Pro-B Natriuret Pep 307 01/22/19 01/22/19 01/22/19 16:27 22:10 22:10 Creatine Kinase 23 L CK-MB (CK-2) < 0.22 0.23 Troponin I Cancelled 0.170 NT-Pro-B Natriuret Pep 01/23/19 01/23/19 01/24/19 04:30 04:30 06:50 Creatine Kinase < 20 L CK-MB (CK-2) < 0.22 Troponin I 0.124 NT-Pro-B Natriuret Pep 431 1110 H Impressions: Chest X-Ray 01/22/19 13:20 IMPRESSION: New right basilar airspace disease with or without pleural fluid. Chest/Abdomen CTA 01/22/19 17:06 IMPRESSION: 1. No acute pulmonary embolism. 2. Unchanged diffuse metastatic disease with mediastinal and hilar adenopathy. Assessment & Plan - Diagnosis (1) Lung cancer Qualifiers: Laterality: left Lung location: upper lobe of lung Qualified Code(s): C34.12 - Malignant neoplasm of upper lobe, left bronchus or lung Is this a current diagnosis for this admission?: Yes Plan: No further treatment plan, hospice is met with patient and we will probably get home hospice stuff set up for her tomorrow, and possible discharge on Tuesday. (2) Rheumatoid arteritis Is this a current diagnosis for this admission?: Yes Plan: New with IV steroids, she needs at least 2 more days of IV steroids to get her joint pain and swelling under control. - Time Time Spent with patient: 35 or more minutes
[2019-01-24] MEDS: CEFEPIME HCL 2 GM in DEXTROSE 5%-WATER 50 ML IV SCH ×2 (09:18→21:56)
[2019-01-24] MEDS: METHYLPREDNISOLONE INJ 40 MG/1 ML SDV IV SCH ×2 (09:19→21:48)
[2019-01-24] MEDS: PREDNISONE 10 MG TABLET PO SCH (09:19)
[2019-01-24] MEDS: ASPIRIN 81 MG TABLET, CHEWABLE PO SCH (09:19)
[2019-01-24] MEDS: CITALOPRAM HYDROBROMIDE 20 MG TABLET PO SCH (09:19)
[2019-01-24] MEDS: RIFAMPIN 300 MG CAPSULE PO SCH (09:20)
[2019-01-24] MEDS: ENOXAPARIN SODIUM INJ 40 MG/0.4 ML DISP.SYRIN SUBCUT SCH (09:22)
[2019-01-24] MEDS: NYSTATIN 500000 UNIT/5 ML UDCUP PO SCH ×3 (11:27→22:01)
[2019-01-24] MEDS ORDERED: NITROGLYCERIN 0.4 MG/TAB 25 TAB/BOTTLE ONE (16:30)
[2019-01-24] MEDS ORDERED: NITROGLYCERIN 0.4 MG/TAB 25 TAB/BOTTLE SL PRN (16:44)
[2019-01-24] MEDS: MORPHINE SULFATE 10 MG/ML INJ IV PRN (16:47)
[2019-01-24] MEDS: ONDANSETRON HCL INJ/PF 4 MG/2 ML SDV IV PRN (17:25)
[2019-01-24 17:40] LABS: CREATINE KINASE MB 0.24 ng/mL (<4.55); TROPONIN I 0.055 ng/mL
--- NOTE | 2019-01-24 18:42 | EKG REPORT ---
SEVERITY:- NORMAL ECG - SINUS RHYTHM : Confirmed by: Sixto Wheat MD 24-Jan-2019 18:42:01
--- NOTE | 2019-01-24 20:54 | Progress Note ---
Provider Note Provider Note: CARDIOLOGY PROGRESS NOTE by Dr. Marva Flores on 01/24/2019. SUBJECTIVE: The patient still has some dry cough. Her right sided localized chest pain in the front of the chest is improved. But the patient had severe lower midsternal pain, without tenderness. It did seem to vary with portions of the patient. In spite of this history I was unable to obtain any increase or decrease in the patient's chest pain with the patient's different positions or with the muscles of the chest being put into use she was given 2 sublingual nitroglycerin without, although she developed nausea and vomiting there is no arrhythmia seen on the monitor. The patient states she has cough ongoing, and says also she has a sore throat. She states that she is unable to bring up any sputum. The patient does have some orthopnea. But there is no PND. There is no arrhythmia seen on the monitor. : The patient appears to be a frail build. At present distress due to chest pain, and subsequently this was relieved with the patient was given morphine. She is well-groomed. Selected Entries 01/24/19 01/24/19 12:05 16:09 Temperature 97.8 F Temperature Oral Source Pulse Rate 91 Blood Pressure 144/76 H Blood Pressure 98 Mean BP Location Right Arm BP Position Sitting O2 Sat by Pulse 100 Oximetry Oxygen Flow 3.5 Rate Oxygen Delivery Nasal Cannula Method HEAD: Is atraumatic normocephalic. EYES: Pupils are equal round regular react to light accommodation. HEENT is otherwise negative. Neck is supple there is no JVD. Carotids are equal there is no bruit. There is no lymphadenopathy. There is no accessory muscle respiration use. LUNGS: There is some chest wall tenderness in the right front of the chest which is much less than yesterday. There is diminished air entry prolonged expiration with some scattered rhonchi. There is no wheezing or rales. On percussion there is hyperresonance. HEART: S1-S2 is heard. There is no S3 gallop. There is no S4 gallop. There is systolic murmur left sternal border and the apex there is no rub. ABDOMEN: Soft. Nontender. There is no hepatosplenomegaly. Bowel sounds are well heard. EXTREMITIES: Femorals are well felt. There is no femoral bruits. Leg pulses well felt. There is no DVT or cellulitis. There is no pedal edema. There is no cyanosis, but the patient does have clubbing of the fingers of her hand. Capillary refill is normal. PRACTICE CLINICIAN: The patient is conscious awake alert oriented x3 with no focal deficits. PSYCHIATRIC. The patient does appear to be slightly depressed and anxious. In spite of this her judgment and insight are intact Labs- All tests 24 hr 01/24/19 01/24/19 01/24/19 05:51 06:50 06:50 WBC 7.4 RBC 2.81 L Hgb 9.2 L Hct 26.8 L MCV 95 MCH 32.8 MCHC 34.5 RDW 14.8 H Plt Count 302 Sodium Potassium Chloride Carbon Dioxide Anion Gap BUN Creatinine Est GFR ( Amer) Est GFR (Non-Af Amer) Glucose POC Glucose Calcium Magnesium Creatine Kinase CK-MB (CK-2) Troponin I NT-Pro-B Natriuret Pep Urine Color YELLOW Urine Appearance CLEAR Urine pH 6.0 Ur Specific [place] 1.008 Urine Protein NEGATIVE Urine Glucose (UA) NEGATIVE Urine Ketones NEGATIVE Urine Blood NEGATIVE Urine Nitrite NEGATIVE Urine Bilirubin NEGATIVE Urine Urobilinogen NEGATIVE Ur Leukocyte Esterase TRACE H Urine WBC (Auto) 9 Urine RBC (Auto) 2 U Hyaline Cast (Auto) 2 Urine Bacteria (Auto) TRACE Squamous Epi Cells Auto <1 Urine Mucus (Auto) RARE Urine Ascorbic Acid NEGATIVE Stool Occult Blood NEGATIVE 01/24/19 01/24/19 01/24/19 06:50 06:50 17:00 WBC RBC Hgb Hct MCV MCH MCHC RDW Plt Count Sodium 137.6 Potassium 4.6 Chloride 105 Carbon Dioxide 25 Anion Gap 8 BUN 12 Creatinine 0.77 Est GFR ( Amer) > 60 Est GFR (Non-Af Amer) > 60 Glucose 108 POC Glucose Calcium 9.3 Magnesium 2.1 Creatine Kinase 22 L CK-MB (CK-2) Troponin I NT-Pro-B Natriuret Pep 1110 H Urine Color Urine Appearance Urine pH Ur Specific [place] Urine Protein Urine Glucose (UA) Urine Ketones Urine Blood Urine Nitrite Urine Bilirubin Urine Urobilinogen Ur Leukocyte Esterase Urine WBC (Auto) Urine RBC (Auto) U Hyaline Cast (Auto) Urine Bacteria (Auto) Squamous Epi Cells Auto Urine Mucus (Auto) Urine Ascorbic Acid Stool Occult Blood 01/24/19 01/24/19 17:00 21:10 WBC RBC Hgb Hct MCV MCH MCHC RDW Plt Count Sodium Potassium Chloride Carbon Dioxide Anion Gap BUN Creatinine Est GFR ( Amer) Est GFR (Non-Af Amer) Glucose POC Glucose 116 H Calcium Magnesium Creatine Kinase CK-MB (CK-2) 0.24 Troponin I 0.055 NT-Pro-B Natriuret Pep Urine Color Urine Appearance Urine pH Ur Specific [place] Urine Protein Urine Glucose (UA) Urine Ketones Urine Blood Urine Nitrite Urine Bilirubin Urine Urobilinogen Ur Leukocyte Esterase Urine WBC (Auto) Urine RBC (Auto) U Hyaline Cast (Auto) Urine Bacteria (Auto) Squamous Epi Cells Auto Urine Mucus (Auto) Urine Ascorbic Acid Stool Occult Blood EKG: Done at the time of chest pain is within normal limits. IMPRESSION/Recommendation 1. Chest pain noncardiac. 2. Elevated troponin I which is trended down. This is secondary to supply demand mismatch due to the lung cancer and COPD exacerbation. There is no evidence of non-ST elevation WI. Hence would not treat this is a non-ST elevation WI. Also patient not a candidate for aggressive treatment. 3. Acute exacerbation of COPD: Improving 4. Lung cancer stage IV: Supportive treatment. Oncology on the case. 5. Hypertension: Well controlled. Anti-TB medication. Current antihypertensives. 6. Questionable history of tuberculous infection of the lung. Continue anti-TB medication . Rheumatoid arthritis: Appears to be stable Note patient reassured that the chest pain is noncardiac. Medications reviewed. Discussed the case with the attending physician Dr. Pereyra. 40 minutes spent on this patient with more than 50% of time spent in direct patient care. Medical decision making is of moderate complexity. 40 minutes spent on this patient with more than 50% time spent in direct patient care. The patient is a DNR. Her daughter is her surrogate healthcare decision maker. Will follow
[2019-01-24] MEDS: TEMAZEPAM 15 MG CAPSULE PO SCH (21:49)
[2019-01-25] MEDS: NORMAL SALINE 1000 ML 1,000 ML IV PRN ×2 (02:00→17:21)
[2019-01-25] MEDS: PANTOPRAZOLE SODIUM 40 MG TABLET.DR PO SCH ×2 (05:50→17:20)
[2019-01-25] MEDS: NYSTATIN 500000 UNIT/5 ML UDCUP PO SCH ×3 (06:00→21:09)
[2019-01-25 06:51] LABS: ABSOLUTE BASOPHILS # (AUTO) 0.1 10^3/uL (0.0-0.2); ABSOLUTE EOSINOPHILS # (AUTO) 0.1 10^3/uL (0.0-0.6); ABSOLUTE LYMPHOCYTES (AUTO) 0.9 10^3/uL (0.5-4.7); ABSOLUTE MONOCYTES (AUTO) 0.5 10^3/uL (0.1-1.4); ABSOLUTE NEUT (AUTO) 6.2 10^3/uL (1.7-8.2); BASOPHILS % (AUTO) 0.9 % (0-2); EOSINOPHILS % (AUTO) 1.1 % (0-6); HEMATOCRIT 27.1 % (36.0-47.0); HEMOGLOBIN 9.3 g/dL (12.0-15.5); LYMPHOCYTES % (AUTO) 11.6 % (13-45); MEAN CORPUSCULAR HEMOGLOBIN 32.7 pg (27.0-33.4); MEAN CORPUSCULAR HGB CONC 34.2 g/dL (32.0-36.0); MEAN CORPUSCULAR VOLUME 96 fl (80-97); MONOCYTES % (AUTO) 6.6 % (3-13); PLATELET COUNT 295 10^3/uL (150-450); RED BLOOD COUNT 2.83 10^6/uL (3.72-5.28); SEGMENTED NEUTROPHILS % (AUTO) 79.8 % (42-78); TOTAL CELLS COUNTED % (AUTO) 100 %; WHITE BLOOD COUNT 7.7 10^3/uL (4.0-10.5)
[2019-01-25 06:55] LABS: BLOOD UREA NITROGEN 8 mg/dL (7-20); CALCIUM 9.4 mg/dL (8.4-10.2); CHLORIDE 109 mmol/L (98-107); GLUCOSE 92 mg/dL (75-110); POTASSIUM 4.6 mmol/L (3.6-5.0)
[2019-01-25 07:01] LABS: CARBON DIOXIDE 26 mmol/L (22-30); SODIUM 139.4 mmol/L (137-145)
[2019-01-25 07:07] LABS: ANION GAP 4 (5-19)
[2019-01-25] MEDS: IPRATROPIUM/ALBUTEROL 0.5-2.5 MG/3 ML AMPUL NEB SCH (08:15)
[2019-01-25] MEDS: ASPIRIN 81 MG TABLET, CHEWABLE PO SCH (09:16)
[2019-01-25] MEDS: PREDNISONE 10 MG TABLET PO SCH (09:18)
[2019-01-25] MEDS: METHYLPREDNISOLONE INJ 40 MG/1 ML SDV IV SCH ×2 (09:18→21:09)
[2019-01-25] MEDS: DOCUSATE SODIUM 100 MG CAPSULE PO SCH ×2 (09:18→17:20)
[2019-01-25] MEDS: POLYETHYLENE GLYCOL 3350 POWDER 17 GM/1 PACKET PO SCH (09:19)
[2019-01-25] MEDS: CEFEPIME HCL 2 GM in DEXTROSE 5%-WATER 50 ML IV SCH ×2 (09:20→21:11)
[2019-01-25] MEDS: ENOXAPARIN SODIUM INJ 40 MG/0.4 ML DISP.SYRIN SUBCUT SCH (09:20)
[2019-01-25] MEDS: RIFAMPIN 300 MG CAPSULE PO SCH (09:22)
[2019-01-25] MEDS ORDERED: IPRATROPIUM/ALBUTEROL 0.5-2.5 MG/3 ML AMPUL NEB PRN (11:26)
--- NOTE | 2019-01-25 12:12 | PDOC PROGRESS REPORT ---
Subjective Progress Note for:: 01/25/19 Subjective:: Patient is feeling much better Yesterday have episode of the chest pain seen by Dr. Flores noncardiac most likely ongoing malignancy Patient's denied any chest pain today no short of breath Patient is complaining some constipation's Reason For Visit: NON ST NH/CHEST PAIN/STAGE 4 LUNG CANCER/LATENT TB Physical Exam Vital Signs: Temp Pulse Resp BP Pulse Ox 97.9 F 79 17 129/62 H 97 01/25/19 07:54 01/25/19 08:15 01/25/19 08:15 01/25/19 07:54 01/25/19 08:15 Intake & Output 01/24/19 01/25/19 01/26/19 06:59 06:59 06:59 Intake Total 1945 1475 Balance 1945 147 Weight 66.8 kg 69 kg General appearance: PRESENT: no acute distress, well-developed, well-nourished Head exam: PRESENT: atraumatic, normocephalic Eye exam: PRESENT: conjunctiva pink, EOMI, PERRLA. ABSENT: scleral icterus Ear exam: PRESENT: normal external ear exam Mouth exam: PRESENT: moist, tongue midline Neck exam: PRESENT: full ROM. ABSENT: carotid bruit, JVD, lymphadenopathy, thyromegaly Respiratory exam: PRESENT: clear to auscultation santi Cardiovascular exam: PRESENT: RRR. ABSENT: diastolic murmur, rubs, systolic murmur Vascular exam: PRESENT: normal capillary refill GI/Abdominal exam: PRESENT: normal bowel sounds, soft. ABSENT: distended, guarding, mass, organolmegaly, rebound, tenderness Rectal exam: PRESENT: deferred Musculoskeletal exam: PRESENT: ambulatory Neurological exam: PRESENT: alert, awake, oriented to person, oriented to place, oriented to time, oriented to situation, CN II-XII grossly intact. ABSENT: triston r sensory deficit Psychiatric exam: PRESENT: appropriate affect, normal mood. ABSENT: homicidal ideation, suicidal ideation Skin exam: PRESENT: dry, intact, warm. ABSENT: cyanosis, rash Results Laboratory Results: 01/25/19 06:00 01/25/19 06:00 01/25/19 01/25/19 06:00 06:00 WBC 7.7 RBC 2.83 L Hgb 9.3 L Hct 27.1 L MCV 96 MCH 32.7 MCHC 34.2 RDW 15.0 H Plt Count 295 Seg Neutrophils % 79.8 H Lymphocytes % 11.6 L Monocytes % 6.6 Eosinophils % 1.1 Basophils % 0.9 Absolute Neutrophils 6.2 Absolute Lymphocytes 0.9 Absolute Monocytes 0.5 Absolute Eosinophils 0.1 Absolute Basophils 0.1 Sodium 139.4 Potassium 4.6 Chloride 109 H Carbon Dioxide 26 Anion Gap 4 L BUN 8 Creatinine 0.71 Est GFR ( Amer) > 60 Est GFR (Non-Af Amer) > 60 Glucose 92 Calcium 9.4 Magnesium 2.1 01/22/19 01/22/19 01/22/19 14:31 16:27 16:27 Creatine Kinase 20 L CK-MB (CK-2) Troponin I 0.179 0.160 NT-Pro-B Natriuret Pep 307 01/22/19 01/22/19 01/22/19 16:27 22:10 22:10 Creatine Kinase 23 L CK-MB (CK-2) < 0.22 0.23 Troponin I Cancelled 0.170 NT-Pro-B Natriuret Pep 01/23/19 01/23/19 01/24/19 04:30 04:30 06:50 Creatine Kinase < 20 L CK-MB (CK-2) < 0.22 Troponin I 0.124 NT-Pro-B Natriuret Pep 431 1110 H 01/24/19 01/24/19 01/25/19 17:00 17:00 06:00 Creatine Kinase 22 L CK-MB (CK-2) 0.24 Troponin I 0.055 NT-Pro-B Natriuret Pep 1040 H Impressions: Chest X-Ray 01/22/19 13:20 IMPRESSION: New right basilar airspace disease with or without pleural fluid. Chest/Abdomen CTA 01/22/19 17:06 IMPRESSION: 1. No acute pulmonary embolism. 2. Unchanged diffuse metastatic disease with mediastinal and hilar adenopathy. Assessment & Plan - Diagnosis (1) Chest pain Qualifiers: Chest pain type: unspecified Qualified Code(s): R07.9 - Chest pain, unspecified Is this a current diagnosis for this admission?: Yes Plan: As per gift consultant noncardiac due to the ongoing malignancy and the rheumatoid arthritis (2) NSTEMI (non-ST elevated myocardial infarction) Is this a current diagnosis for this admission?: Yes Plan: Coding to the gift consultant there is no sign of non-ST NH most likely related to the troponin leak (3) Rheumatoid arteritis Is this a current diagnosis for this admission?: Yes Plan: Is currently see a photographer scientific Not a candidate for any infusions with inconclusive TB test (4) Anxiety disorder Qualifiers: Anxiety disorder type: generalized anxiety disorder Qualified Code(s): F41.1 - Generalized anxiety disorder Is this a current diagnosis for this admission?: Yes Plan: Currently all stable (5) Chronic obstructive pulmonary disease Qualifiers: COPD type: unspecified COPD Qualified Code(s): J44.9 - Chronic obstructive pulmonary disease, unspecified Is this a current diagnosis for this admission?: Yes Plan: continue to nebulizer treatments (6) Lung cancer Qualifiers: Laterality: left Lung location: upper lobe of lung Qualified Code(s): C34.12 - Malignant neoplasm of upper lobe, left bronchus or lung Is this a current diagnosis for this admission?: Yes Plan: Consult oncology (7) Urinary tract infection Qualifiers: Urinary tract infection type: site unspecified Is this a current diagnosis for this admission?: Yes Plan: Start on antibiotics (8) Chronic pain syndrome Is this a current diagnosis for this admission?: Yes Plan: Consult the pain management (9) Pneumonia Is this a current diagnosis for this admission?: Yes Plan: Get the sputum cultures current start on antibiotic (10) Shortness of breath Is this a current diagnosis for this admission?: Yes Plan: Multifactorial due to the worsening the malignancy - Time Time Spent with patient: 15-24 minutes Medications reviewed and adjusted accordingly: Yes Anticipated discharge: Home, Hospice Within: Other - Plan Summary Plan Summary: continue cuu mes
[2019-01-25] MEDS: ONDANSETRON HCL INJ/PF 4 MG/2 ML SDV IV PRN ×2 (17:20→21:10)
[2019-01-25] MEDS ORDERED: CARBOXYMETHYLCELLULOSE SOD 0.5% 0.4 ML DROPERETTE OU PRN (17:20)
[2019-01-25] MEDS: TEMAZEPAM 15 MG CAPSULE PO SCH (21:09)
[2019-01-25] MEDS: MORPHINE SULFATE 10 MG/ML INJ IV PRN (21:10)
[2019-01-25] MEDS ORDERED: CITALOPRAM HYDROBROMIDE 20 MG TABLET PO SCH (22:00)
[2019-01-26] MEDS: NYSTATIN 500000 UNIT/5 ML UDCUP PO SCH (06:02)
[2019-01-26] MEDS: PANTOPRAZOLE SODIUM 40 MG TABLET.DR PO SCH (06:02)
--- NOTE | 2019-01-26 09:25 | PDOC PROGRESS REPORT ---
Subjective Progress Note for:: 01/26/19 Subjective:: Long discussion with patient and family today spent greater than 35 minutes in discussion, discussed hospice and end-of-life care issues. Discharge with hospice today. Reason For Visit: NON ST [place]/CHEST PAIN/STAGE 4 LUNG CANCER/LATENT TB Physical Exam Vital Signs: Temp Pulse Resp BP Pulse Ox 97.5 F 67 20 154/69 H 100 01/26/19 04:31 01/26/19 07:00 01/26/19 04:31 01/26/19 04:31 01/26/19 04:31 Intake & Output 01/25/19 01/26/19 01/27/19 06:59 06:59 06:59 Intake Total 1475 3267 Balance 1475 3267 Weight 69 kg 70.3 kg General appearance: PRESENT: no acute distress, well-developed, well-nourished Head exam: PRESENT: atraumatic, normocephalic Eye exam: PRESENT: conjunctiva pink, EOMI, PERRLA. ABSENT: scleral icterus Ear exam: PRESENT: normal external ear exam Mouth exam: PRESENT: moist, tongue midline Neck exam: ABSENT: carotid bruit, JVD, lymphadenopathy, thyromegaly Respiratory exam: PRESENT: clear to auscultation santi. ABSENT: rales, rhonchi, wheezes Cardiovascular exam: PRESENT: RRR. ABSENT: diastolic murmur, rubs, systolic murmur Pulses: PRESENT: normal dorsalis pedis pul Vascular exam: PRESENT: normal capillary refill GI/Abdominal exam: PRESENT: normal bowel sounds, soft. ABSENT: distended, guarding, mass, organolmegaly, rebound, tenderness Rectal exam: PRESENT: deferred Extremities exam: PRESENT: full ROM. ABSENT: calf tenderness, clubbing, pedal edema Neurological exam: PRESENT: alert, awake, oriented to person, oriented to place, oriented to time, oriented to situation, CN II-XII grossly intact. ABSENT: motor sensory deficit Psychiatric exam: PRESENT: appropriate affect, normal mood. ABSENT: homicidal ideation, suicidal ideation Skin exam: PRESENT: dry, intact, warm. ABSENT: cyanosis, rash Results Laboratory Results: 01/25/19 06:00 01/25/19 06:00 01/22/19 01/22/19 01/22/19 14:31 16:27 16:27 Creatine Kinase 20 L CK-MB (CK-2) Troponin I 0.179 0.160 NT-Pro-B Natriuret Pep 307 01/22/19 01/22/19 01/22/19 16:27 22:10 22:10 Creatine Kinase 23 L CK-MB (CK-2) < 0.22 0.23 Troponin I Cancelled 0.170 NT-Pro-B Natriuret Pep 01/23/19 01/23/19 01/24/19 04:30 04:30 06:50 Creatine Kinase < 20 L CK-MB (CK-2) < 0.22 Troponin I 0.124 NT-Pro-B Natriuret Pep 431 1110 H 01/24/19 01/24/19 01/25/19 17:00 17:00 06:00 Creatine Kinase 22 L CK-MB (CK-2) 0.24 Troponin I 0.055 NT-Pro-B Natriuret Pep 1040 H Impressions: Chest X-Ray 01/22/19 13:20 IMPRESSION: New right basilar airspace disease with or without pleural fluid. Chest/Abdomen CTA 01/22/19 17:06 IMPRESSION: 1. No acute pulmonary embolism. 2. Unchanged diffuse metastatic disease with mediastinal and hilar adenopathy. Assessment & Plan - Diagnosis (1) Lung cancer Qualifiers: Laterality: left Lung location: upper lobe of lung Qualified Code(s): C34.12 - Malignant neoplasm of upper lobe, left bronchus or lung Is this a current diagnosis for this admission?: Yes Plan: No further treatment plan, patient discharged with hospice today (2) Rheumatoid arteritis Is this a current diagnosis for this admission?: Yes Plan: Continue with prednisone 40 mg daily
[2019-01-26] MEDS: PREDNISONE 10 MG TABLET PO SCH (09:37)
[2019-01-26] MEDS: RIFAMPIN 300 MG CAPSULE PO SCH (09:37)
[2019-01-26] MEDS: DOCUSATE SODIUM 100 MG CAPSULE PO SCH (09:37)
[2019-01-26] MEDS: CEFEPIME HCL 2 GM in DEXTROSE 5%-WATER 50 ML IV SCH (09:38)
[2019-01-26] MEDS: POLYETHYLENE GLYCOL 3350 POWDER 17 GM/1 PACKET PO SCH (09:38)
[2019-01-26] MEDS: ASPIRIN 81 MG TABLET, CHEWABLE PO SCH (09:38)
[2019-01-26] MEDS: METHYLPREDNISOLONE INJ 40 MG/1 ML SDV IV SCH (09:38)
[2019-01-26] MEDS: ENOXAPARIN SODIUM INJ 40 MG/0.4 ML DISP.SYRIN SUBCUT SCH (09:43)
[2019-01-26 11:00] VITALS: BP 135/61
--- NOTE | 2019-01-26 11:12 | PDOC DISCHARGE SUMMARY ---
General - Admit/Disc Date/PCP Admission Date/Primary Care Provider: 01/22/19 17:11 GENE SMITH MD Discharge Date: 01/26/19 - Discharge Diagnosis (1) Chest pain Is this a current diagnosis for this admission?: Yes Summary: Most likely ongoing advanced lung cancer arthritis (2) NSTEMI (non-ST elevated myocardial infarction) Is this a current diagnosis for this admission?: Yes Summary: no sign of any acute coronary syndromes per cardiology (3) Rheumatoid arteritis Is this a current diagnosis for this admission?: Yes (4) Anxiety disorder Is this a current diagnosis for this admission?: Yes (5) Chronic obstructive pulmonary disease Is this a current diagnosis for this admission?: Yes (6) Lung cancer Is this a current diagnosis for this admission?: Yes (7) Urinary tract infection Is this a current diagnosis for this admission?: Yes (8) Chronic pain syndrome Is this a current diagnosis for this admission?: Yes (9) Pneumonia Is this a current diagnosis for this admission?: Yes (10) Shortness of breath Is this a current diagnosis for this admission?: Yes - Additional Information Resuscitation Status: Do Not Resuscitate Discharge Diet: Regular, Cardiac Discharge Activity: Activity As Tolerated Prescriptions: Cefdinir [Omnicef 300 mg Capsule] 1 cap PO BID #14 capsule Prednisone [Deltasone 10 mg Tablet] 20 mg PO BID #60 tablet Home Medications: Citalopram Hydrobromide [Celexa 20 mg Tablet] 20 mg PO DAILY 08/03/18 Cyclobenzaprine HCl [Flexeril 10 mg Tablet] 10 mg PO Q8HP PRN 08/03/18 Multivit-Min/Iron/Folic/Lutein [Centrum Silver Women Tablet] 1 tab PO DAILY 08/03/18 Ondansetron [Zofran Odt] 8 mg PO Q6HP PRN 08/03/18 Prednisone 10 mg PO DAILY 08/03/18 Temazepam [Restoril] 30 mg PO QHS 08/03/18 Tiotropium Br/Olodaterol HCl [Stiolto Respimat Inhal [place]] 2 puff IH QAM 08/03/18 Hydrocodone/Chlorphen P-Stirex [Hydrocodone-Chlorphen ER Susp] 5 ml PO BIDP PRN 01/22/19 Rifampin [Rifadin 300 mg Capsule] 600 mg PO DAILY 01/22/19 Cefdinir [Omnicef 300 mg Capsule] 1 cap PO BID #14 capsule 01/26/19 Prednisone [Deltasone 10 mg Tablet] 20 mg PO BID #60 tablet 01/26/19 History of Present Illness History of Present Illness: SENAIT LEONARD is a 73 year old female This 73-year-old female with a stage IV lung cancer recent CT scan suggestive of worsening the malignancy with chemotherapy and immunotherapy with a history of the hypertension's history of the COPD emphysema and a history of the rheumatoid arthritis with the recent seen by infectious disease for the inconclusive TB test currently put on a TB medications Patient's came to the emergency department with the complaint of chest pain describing on the right side all over and also very weak unable to move from the bed In the emergency departments workup with the patient's cardiac enzyme is elevated with 0.179 with the non-ST DC range Patient underwent for the CT angiogram which is negative for pulmonary embolism Patient when I saw in the emergency department complaining of generalized weakness and very extensive discussions with the patient and the daughter in the ER patient not feeling well. Several months As per discussed with the oncology recent CT scan so the progression of the patient's malignancy with a stage IV lung cancer which patients fails to the chemotherapy and immunotherapy currently getting the third line chemotherapy 3:01 dose of the cycle patient's disease is not getting better Patient at this point not a candidate for any cardiac interventions due to the ongoing stage IV lung cancers with rheumatoid with a questionable inconclusive TB Patients at this point decided to admit in the hospital for medical management consult the cardiology discussed with the cardiology and consult the oncology Hospital Course Hospital Course: This is a 73-year-old female with as above medical problems present in the emergency department with generalized weakness and not feeling well and a chest pain Patient's CT angiogram was negative for PE but definitely advanced lung cancer which patient already failed the immunotherapy and chemotherapy Patients also seen by cardiology due to the elevated troponin and suggest no sign of any acute coronary syndrome and patient is not a candidate for any cardiac interventions Patient also have a significant rheumatoid arthritis unable to take any infusions due to the inconclusive latent TB currently see infectious disease Patient's pain and weakness is getting more worse Due to the multiple comorbidity as above the oncology suggest the patient unable to get response with any immunotherapy even the third line of the chemotherapy pretty much at this point the hospice care is appropriate Discussed with the patient and her daughter Krystal regarding the patient's current conditions with extensive discussion about the hospice Patient was discharged with the hospice care and comfort care Physical Exam Vital Signs: Temp Pulse Resp BP Pulse Ox 98.0 F 72 20 135/61 H 98 01/26/19 10:52 01/26/19 10:52 01/26/19 10:52 01/26/19 10:52 01/26/19 10:52 Intake & Output 01/25/19 01/26/19 01/27/19 06:59 06:59 06:59 Intake Total 1475 3267 Balance 1475 3267 Weight 69 kg 70.3 kg General appearance: PRESENT: no acute distress, well-developed, well-nourished Head exam: PRESENT: atraumatic, normocephalic Eye exam: PRESENT: conjunctiva pink, EOMI, PERRLA. ABSENT: scleral icterus Ear exam: PRESENT: normal external ear exam Mouth exam: PRESENT: moist, tongue midline Neck exam: PRESENT: full ROM. ABSENT: carotid bruit, JVD, lymphadenopathy, thyromegaly Respiratory exam: PRESENT: clear to auscultation santi Cardiovascular exam: PRESENT: RRR. ABSENT: diastolic murmur, rubs, systolic murmur Vascular exam: PRESENT: normal capillary refill GI/Abdominal exam: PRESENT: normal bowel sounds, soft. ABSENT: distended, guarding, mass, organolmegaly, rebound, tenderness Rectal exam: PRESENT: deferred Neurological exam: PRESENT: alert, awake, oriented to person, oriented to place, oriented to time, oriented to situation, CN II-XII grossly intact. ABSENT: motor sensory deficit Psychiatric exam: PRESENT: appropriate affect, normal mood. ABSENT: homicidal ideation, suicidal ideation Skin exam: PRESENT: dry, intact, warm. ABSENT: cyanosis, rash Results Laboratory Results: 01/25/19 06:00 01/25/19 06:00 01/22/19 01/22/19 01/22/19 14:31 16:27 16:27 Creatine Kinase 20 L CK-MB (CK-2) Troponin I 0.179 0.160 NT-Pro-B Natriuret Pep 307 01/22/19 01/22/19 01/22/19 16:27 22:10 22:10 Creatine Kinase 23 L CK-MB (CK-2) < 0.22 0.23 Troponin I Cancelled 0.170 NT-Pro-B Natriuret Pep 01/23/19 01/23/19 01/24/19 04:30 04:30 06:50 Creatine Kinase < 20 L CK-MB (CK-2) < 0.22 Troponin I 0.124 NT-Pro-B Natriuret Pep 431 1110 H 01/24/19 01/24/19 01/25/19 17:00 17:00 06:00 Creatine Kinase 22 L CK-MB (CK-2) 0.24 Troponin I 0.055 NT-Pro-B Natriuret Pep 1040 H Impressions: Chest X-Ray 01/22/19 13:20 IMPRESSION: New right basilar airspace disease with or without pleural fluid. Chest/Abdomen CTA 01/22/19 17:06 IMPRESSION: 1. No acute pulmonary embolism. 2. Unchanged diffuse metastatic disease with mediastinal and hilar adenopathy. Qualifiers - * PATIENT BEING DISCHARGED WITH ANY OF THE FOLLOWING DIAGNOSIS: No VTE patient discharged on overlapping Therapy?: Yes Plan Time Spent: Greater than 30 Minutes
== END 2019-01-26 11:20 | disposition hospice, home (50) | DRG 180 ==
LOC: ER 12:18 → EH 17:11 → 3S 01-23 18:42
PROVIDERS: ADMIT Family Medicine; ATTEND Family Medicine
DX: C34.12 Malignant neoplasm of upper lobe, left bronchus or lung (principal); J18.9 Pneumonia, unspecified organism; N39.0 Urinary tract infection, site not specified; A15.9 Respiratory tuberculosis unspecified; J44.1 Chronic obstructive pulmonary disease with (acute) exacerbation; J44.0 Chronic obstructive pulmonary disease with (acute) lower respiratory infection; Z99.81 Dependence on supplemental oxygen; M06.9 Rheumatoid arthritis, unspecified; Z51.5 Encounter for palliative care; F41.1 Generalized anxiety disorder; G89.3 Neoplasm related pain (acute) (chronic); G89.4 Chronic pain syndrome; I10 Essential (primary) hypertension; B96.20 Unspecified Escherichia coli [E. coli] as the cause of diseases classified elsewhere; Z66 Do not resuscitate; Z79.52 Long term (current) use of systemic steroids; Z90.2 Acquired absence of lung [part of]; Z87.891 Personal history of nicotine dependence
CPT/HCPCS: 36415; 36591; 71046; 71275; 80048; 80053; 81001; 82272; 82550; 82553; 82962; 83735; 83880; 84484; 85025; 85027; 85610; 85730; 87040; 87086; 87088; 87186; 93005; 93010; 94640; 96374; 99291; J0692; J1642; J1644; J1650; J2270; J2405; J2920; J2930; J3490; J7030; J7060; J7512; J7620